=== PATIENT | male | born 1955 | race Caucasian/White ===

== ENCOUNTER 2016-10-16 07:24 | Inpatient (IN) | payer OTHER ==
[~2016-10-16] VITALS: Ht 162.6 cm; Wt 104.5 kg
--- NOTE | 2016-10-16 08:25 | DIAGNOSTIC IMAGING REPORT ---
PROCEDURE: XR CHEST 2 VIEW INDICATION: COUGH TECHNIQUE: PA and lateral view. COMPARISON: None. FINDINGS: Mild right basilar parenchymal changes suggestive of developing pneumonia. Cardiovascular structures are normal. Bony thorax is unremarkable. IMPRESSION: 1. Mild right basilar parenchymal changes suggestive of developing pneumonia
--- NOTE | 2016-10-16 11:54 | ED NURSING NOTES ---
Clinical Report - Nurses [facility] [address] [place] [address] 10/16/2016 7:25 Patient: NORMA ASHLEY TRIAGE Triage time 07:30. Acuity: LEVEL 2. Chief Complaint: SHORTNESS OF BREATH and DIFFICULTY BREATHING and (Dx with pneumonia and COPD in August. C/o not getting better. States he took the 2 meds that were prescribed.). 07:39 10/16/16. SEPSIS SCREEN: Sepsis Screen. Negative (no infection suspected/documented). YFN COMA SCORE: [place] Coma Scale: 15- eyes open spontaneously (4); best verbal response- oriented x 4 (5); best motor response- obeys commands (6). --07:39 Keith Myles R.N. 07:31 10/16/16. BP: 147/73. HR: 89. RR: 20. O2 saturation: 91% on nasal cannula at 2 liters/minute. Temp: 98 F (oral). Pain level now: 5/10. Additional comments: (bilat hip pain). --07:39 Keith Myles R.N. late entry -07:38. --08:07 Keith Myles R.N. Weight: 104.3 kg measured. Height/Length: 64 inches Per Patient. BMI: 39.5. --07:38 Keith Myles R.N. Medications Depakote Oral. Doxepin HCl Oral 300mg, at bedtime. Lisinopril Oral. SEROquel Oral. Xanax Oral 0.5 mg, as needed. --07:33 Keith Myles R.N. Cholesterol med ??. --07:33 Keith Myles R.N. HTN med ??. --07:34 Keith Myles R.N. Allergies BuSpar. --07:32 Keith Myles R.N. History Arrived by EMS. Historian: patient. The patient has had a cough productive of sputum (for weeks). 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 SOCIAL HX: Heavy tobacco smoker (cigarette)- 1 pack per day. No alcohol use or drug use. ABUSE ASSESSMENT: No report of abuse. --07:39 Keith Myles R.N. ( Pt also c/o being very weak.). --08:07 Keith Myles R.N. PROBLEMS: COPD. Abrasion(s). Sprain. Depression. Hypertension. Back Pain. Puncture Wound. Tetanus Status. Immunizations. Anxiety Reaction. --07:33 Keith Myles R.N. ADDITIONAL SURGERIES: Left wrist: 40 years ago. --07:33 Keith Myles R.N. Interventions ID band on patient. To treatment room. --07:39 Keith Myles R.N. PHYSICAL ASSESSMENT 07:44 10/16/16. To room via stretcher. Patient gowned. GENERAL / NEURO / PSYCH: Alert. Oriented X 4. Appears anxious. HEENT: Mucous membranes are pink. RESPIRATORY: Mild respiratory distress. The patient can speak a few words at a time. Accessory muscle use. Chest nontender. Wheezing present. CVS: Normal sinus rhythm noted. Capillary refill less than 2 seconds. GI / : Abdomen soft and nontender. Bowel sounds within normal limits. SKIN: Skin is warm and dry. Normal skin turgor. --07:45 Keith Myles R.N. NURSING PROGRESS NOTES 07:45 10/16/16. Oxygen administered by nasal cannula at 2 liters. school bus monitor, pulse oximeter and NIBP monitor placed on patient; satellite project site monitor- Lead II and V5; monitor alarms on. Head of bed elevated. Reassurance given. Two patient identifiers checked. Call light placed in reach. Side rails up x 2. Bed placed in lowest position. Brakes of bed on. Patient ready for evaluation- chart flagged. --07:45 Keith Myles R.N. 07:53 10/16/2016 Site #1 started via IV in the left hand with an 20g angiocath, with aseptic technique and good blood return; one attempt. Blood drawn. Labeled in the presence of the patient and sent to the lab. Saline lock flushed with 10 mL saline. --08:01 Keith Myles R.N. 08:00 10/16/2016 Duoneb (Ipratropium-Albuterol) Neb TX Nebulizer 1 unit dose given. Given by the respiratory therapist. Allergies verified and confirmed 5 rights. --08:02 Keith Myles R.N. 08:00 10/16/2016 SOLU-MEDROL (MethylPREDNISolone Sodium Succ) IVP 125 mg given over 1 minute(s) via site #1. Allergies verified and confirmed 5 rights. IV patency established. IV site checked: no pain, redness, or swelling. IV flushed thoroughly pre- and post-medication administration. IVP given by RN. --08:03 Keith Myles R.N. 08:05 10/16/16. Oxygen increased to 4 liters by nasal cannula; (low spo2, increased RR). --08:05 Keith Myles R.N. Cardiac rhythm: normal sinus rhythm. --08:26 Keith Myles R.N. 08:25 10/16/16. BP: 146/75. HR: 83. RR: 20. O2 saturation: 94% on nasal cannula at 3 liters/minute. --08:26 Keith Myles R.N. 08:54 10/16/2016 Albuterol Neb TX Nebulizer 5 mg given. Given by the respiratory therapist. Allergies verified and confirmed 5 rights. --09:04 Keith Myles R.N. 09:00 10/16/16. BP: 140/69. HR: 92. RR: 23. O2 saturation: 94% on nasal cannula at 3 liters/minute. Temp: 98.2 F (oral). --10:34 Keith Myles R.N. 09:30 10/16/16. HR: 94. RR: 23. O2 saturation: 92%. Pain level now: 01/28. --10:35 Keith Myles R.N. 10:00 10/16/16. HR: 92. RR: 25. O2 saturation: 92% on nasal cannula at 2 liters/minute. --10:36 Keith Myles R.N. 10:20 10/16/16. BP: 124/63. HR: 92. RR: 24. O2 saturation: 91% on nasal cannula at 2 liters/minute. --10:36 Keith Myles R.N. EKG time: (11:45). EKG was performed by a nurse and shown to the ED physician. --11:51 Mady Love R.N. 11:51 10/16/16. O2 saturation: 92% on nasal cannula at 2 liters/minute. --11:51 Mady Love R.N. ( Pt given a phone to make a call). --11:58 Mady Love R.N. 08:30 10/16/2016 Duoneb Neb TX Response: no adverse reaction (minimal improvement). --12:05 Keith Myles R.N. 10:45 10/16/2016 Albuterol Neb TX Nebulizer 2.5 mg given. Given by the respiratory therapist. Allergies verified and confirmed 5 rights. --12:07 Keith Myles R.N. 12:01 10/16/16. ( Pt complained of back pain, ERMD notified, obtained order for Vicodin 2 tabs.). --12:01 Mady Love R.N. 12:02 10/16/2016 Hydrocodone-APAP (Hydrocodone-Acetaminophen) PO 5/325 mg Tablets 2 tab given. Confirmed 5 rights and sedative warning given. --12:09 Mady Love R.N. 12:48 10/16/2016 Started 750 mg of Levaquin (Levofloxacin) IVPB in bag #1 150 mL; at 100 mL/hr over 1.5 hour(s) via site #1 via IV pump. Allergies verified and confirmed 5 rights. IV patency established. IV site checked: no pain, redness, or swelling. IV flushed thoroughly pre- and post-medication administration. --12:48 Keith Myles R.N. 13:08 10/16/2016 Site #1 removed. Bandage applied (Pt accidentally pulled the IV out.). --13:08 Keith Myles R.N. 13:08 10/16/2016 Site #2 started via IV in the left wrist with an 20g angiocath, with aseptic technique and good blood return; one attempt. Saline lock flushed with 10 mL saline. --13:08 Keith Myles R.N. 13:48 10/16/2016 Site #2 removed. Catheter intact. Manual pressure and bandage applied (patient accidentally pulled out IV). --13:50 Alejandra Estrella R.N. 12:45 10/16/16. BP: 139/78. HR: 91. RR: 22. O2 saturation: 92% on nasal cannula at 2 liters/minute. --14:18 Keith Myles R.N. 13:15 10/16/16. BP: 128/68. HR: 86. RR: 17. O2 saturation: 92% on nasal cannula at 2 liters/minute. --14:18 Keith Myles R.N. 13:45 10/16/16. BP: 112/78. HR: 89. RR: 20. O2 saturation: 91% on nasal cannula at 2 liters/minute. Temp: 98.2 F (oral). Pain level now: 11/28. --14:21 Keith Myles R.N. DISPOSITION / DISCHARGE 14:10/16/16. Report was given to a nurse. Report included patient's care, treatment, medications, reviewed medication reconcilliation, and condition (including any recent changes or anticipated changes). All questions were answered. Report was acknowledged. (ERIKA Medina). --14:04 Keith Myles R.N. 14:10 10/16/2016 Site #3 started via IV in the right hand with an 20g angiocath, with aseptic technique and good blood return; one attempt. Saline lock flushed with 10 mL saline. --14:22 Keith Myles R.N. 14:20 10/16/2016 Site #[address] upon admission; patent, no pain and no signs of infection or infiltration. Good blood return present. Flushed with 10 mL saline; flushes easily. --14:23 Keith Myles R.N. 14:22 10/16/16. Departure time: 1420. Cardiac rhythm: normal sinus rhythm. Condition at departure: improved and stable. Disposition: observation in Acute Care (201). Patient's personal items include, with pt. --14:23 Keith Myles R.N. 13:45 10/16/16. BP: 112/78. HR: 89. RR: 20. O2 saturation: 91% on nasal cannula at 2 liters/minute. Temp: 98.2 F (oral). --14:23 Keith Myles R.N. Locked/Released at 10/17/2016 8:19 by Keith Myles R.N.
--- NOTE | 2016-10-16 11:54 | ED CLINICAL REPORT ---
Clinical Report - Physicians/Mid Levels [facility] [address] [place] [address] 10/16/2016 7:25 Patient: NORMA ASHLEY Time Seen: 0731. Arrived- By ambulance. Historian- patient. HISTORY OF PRESENT ILLNESS Chief Complaint: DYSPNEA. This started past month. It was gradual in onset and has been constant but is gone now or not gone now. The dyspnea is described as moderate. He has had dyspnea at rest. The patient has had a cough. He has had moderate amounts of thick, green sputum. There has been a change from baseline. (states he is having a fever). See nurses notes for current asthma threapy. Asthma triggers: unknown. (reports having diagnosis of COPD. states he was recently treated with abx about a month ago. says he has not gotten better). Similar symptoms previously: None. Recent medical care: The patient was seen recently in a clinic. REVIEW OF SYSTEMS No sore throat or throat, nasal discharge, sinus drainage or fever. No chills, muscle aches, palpitations, calf pain or nausea. No abdominal pain, diarrhea, black stools, difficulty with urination or excessive urination. No skin rash, enlarged lymph nodes, vomiting, diabetic symptoms or easy bruising. The patient has had weakness. All systems otherwise negative, except as recorded above. PAST HISTORY See nurses notes. Pneumonia. COPD 12-10 to 12-14 admitted Prov [place] for pneumonia due to sats in the 70's. Was 92% on RA at D/C. Hypertension. Hyperlipidemia. Bipolar disorder. (BPH). Medications: HTN med ??. Cholesterol med ??. Depakote Oral. Doxepin HCl Oral 300mg, at bedtime. Lisinopril Oral. SEROquel Oral. Xanax Oral 0.5 mg, as needed. Allergies: BuSpar. SOCIAL HISTORY Smoker- current status unknown. No alcohol use or drug use. No recent travel. Is a local resident. ADDITIONAL NOTES The nursing notes have been reviewed. PHYSICAL EXAM Vital Signs: 10/16/2016 07:31 BP: 147/73. HR: 89. RR: 20. O2 saturation: 91%. Temp: 98 F. Pain level now: 5/10. Blood pressure normal. Oxygen saturation low. Appearance: Alert. No acute distress. Eyes: Pupils equal, round and reactive to light. Eyes normal inspection. ENT: Ears normal. Nose normal. Pharynx normal. Uvula midline. Neck: Normal inspection. Neck supple. CVS: Normal heart rate and rhythm. Heart sounds normal. Pulses normal. Respiratory: Mild respiratory distress with accessory muscle use. Expiratory mild bilateral wheezes diffusely. No stridor or rales. Abdomen: Not soft. Tenderness present. Organomegaly present. Back: Normal inspection. Skin: Skin warm and dry. Normal skin color. No rash. Normal skin turgor. Extremities: Extremities exhibit normal ROM. No lower extremity edema. Neuro: Oriented X 3. No motor deficit. No sensory deficit. LABS, X-RAYS, AND EKG EKG: Normal EKG. Chest X-ray: Infiltrate present. Mediastinum normal. Great vessels normal. (right lower lobe infiltrate. No comparison to a month ago when he had a RLL infiltrate.). Views: PA and lateral. Technique: good. The X-rays were independently viewed by me and interpreted contemporaneously by me. Laboratory Tests: UA-Culture if indicated: (ISABELLA: 10/16/2016 09:55) ( MsgRcvd 10/16/2016 10:25) Final results Test Result Flag Units (Reference) URINE COLOR YELLOW URINE APPEARANCE CLEAR URINE GLUCOSE NEGATIVE (NEGATIVE) URINE BILIRUBIN NEGATIVE (NEGATIVE) URINE KETONE 1+ (NEGATIVE) URINE SPECIFIC GRAVITY 1.020 (1.010-1.030) URINE PH 6.5 (5.0-8.0) URINE PROTEIN TRACE (NEGATIVE) URINE UROBILINOGEN 1.0 EU/dL (0.2-1.0) URINE NITRITE NEGATIVE (NEGATIVE) URINE BLOOD NEGATIVE (NEGATIVE) URINE LEUK ESTERASE NEGATIVE (NEGATIVE) URINE RBC RARE rbc/hpf (0-1) URINE WBC 1-3 wbc/hpf (0-1) URINE EPITHELIAL CELLS NONE SEEN EPI/hpf (0-5) URINE BACTERIA NONE SEEN (NONE SEEN) URINE COMMENT CULT NOT INDICATED 3+ MUCOUSURINE CULTURES ARE SET-UP BASED ON THE FOLLOWING CRITERIA:POSITIVE NITRITEPOSITIVE LEUKOCYTE ESTERASEGREATER THAN 10 WHITE BLOOD CELLSMODERATE (2+) OR GREATER BACTERIA CBC w Diff: (ISABELLA: 10/16/2016 07:53) ( [facility] 10/16/2016 08:13) Final results Test Result Flag Units (Reference) WHITE BLOOD COUNT 9.7 K/uL (4.5-11.5) RED BLOOD COUNT 4.76 M/uL (4.50-5.90) HEMOGLOBIN 13.5 gm/dL (13.5-17.5) HEMATOCRIT 41.3 % (41.0-53.0) MEAN CELL VOLUME 87 fL (80-100) MEAN CORPUSCULAR HGB 28 pg (26-34) MEAN CORPUSCULAR HGB CONC 33 g/dL (31-37) RED CELL DISTRIBUTION WIDTH 15.3 H % (11.6-14.8) PLATELET COUNT 249 K/uL (150-400) NEUTROPHIL % 74.7 % (50-75) LYMPH % 16.1 L % (25-40) MONO % 8.7 % (3-14) EOSINOPHIL % 0.1 % (0-4) BASOPHIL % 0.4 % (0-2) BNP: (ISABELLA: 10/16/2016 07:53) ( [facility] 10/16/2016 11:09) Final results Test Result Flag Units (Reference) B-TYPE NATRIURETIC PEPTIDE 42.4 pg/ml (5-100) Troponin-I: (ISABELLA: 10/16/2016 07:53) ( [facility] 10/16/2016 11:06) Final results Test Result Flag Units (Reference) TROPONIN I <0.05 ng/mL (0.00-1.5) TROPONIN REFERENCE RANGE:<0.1 NEGATIVE0.1-1.5 INDETERMINANT>1.5 POSITIVE Lactate, Serum: (ISABELLA: 10/16/2016 07:53) ( [facility] 10/16/2016 08:26) Final results Test Result Flag Units (Reference) LACTIC ACID 0.9 mmol/L (0.4-2.0) [id number]: (ISABELLA: 10/16/2016 07:53) ( MsgRcvd 10/16/2016 08:57) Final results Test Result Flag Units (Reference) PROCALCITONIN <0.5 ng/mL (0-0.5) PCT Concentration: Interpretation : Risk/option for action PCT <=0.5 ng/mL : Systemic : Low risk forinfection(sepsis): progression to severeis not likely. : systemic infection.Local bacterial : CAUTION-PCT levelsinfection is : below 0.5 ng/mL do notpossible. : exclude an infection,because localizedinfections (withoutsystemic signs) may beassociated with suchlow levels. If PCT ismeasured very earlyafter a bacterialchallenge (usually <6hours), these valuesmay still be low. Inthis case PCT shouldbe re-assessed 6-24hours later. PCT >0.5 and : Systemic infection: Moderate risk for<= 2 ng/mL : (sepsis) is : progression to severepossible, but : systemic infection.other conditions : The patient should beare known to : closely monitoredelevate PCT. : both clinically andby re-assessing PCTwithin 6-24 hours. PCT > 2 ng/mL : Systemic infection: High risk for(sepsis) is likely: progression to severeunless other : systemic infection.causes are known. : PCT >= 10 ng/mL : Important systemic: High likelihood ofinflammatory : severe sepsis orresponse, almost : septic shock.exclusively due to:severe bacterial :sepsis or septic :shock. : CMP: (ISABELLA: 10/16/2016 07:53) ( MsgRcvd 10/16/2016 08:21) Final results Test Result Flag Units (Reference) GLUCOSE 155 H mg/dL (70-110) BUN 11 mg/dL (7-18) CREATININE 0.8 mg/dL (0.6-1.3) Estimated GFR >60 mL/min Estimated GFR- >60 mL/min Note: Persistent reduction over 3 months in eGFR<60 mL/min/1.73 m2 defines CKD. Patients with eGFR values>=60 mL/min/1.73 m2 may also have CKD if evidence ofpersistent proteinuria. Additional information may be foundat www.[email or web address].org. SODIUM 139 mmol/L (136-145) POTASSIUM 3.7 mmol/L (3.5-5.1) CHLORIDE 102 mmol/L (98-107) CARBON DIOXIDE 28 mmol/L (21-32) CALCIUM 8.5 mg/dL (8.5-10.1) TOTAL PROTEIN 6.6 g/dL (6.4-8.2) ALBUMIN 3.1 L g/dL (3.3-5.0) BILIRUBIN, TOTAL 0.2 mg/dL (0.0-1.0) ALKALINE PHOSPHATASE 75 U/L (46-116) AST (SGOT) 11 L U/L (15-37) ALT (SGPT) 19 U/L (12-78) RSV Rapid Screen: (ISABELLA: 10/16/2016 07:53) ( MsgRcvd 10/16/2016 08:42) Final results SPECIMEN DESCRIPTION: ONCE SPECIMEN DESCRIPTION: MUCUS Test Result Flag Units (Reference) RSV RAPID TEST DATE: 10/16/16 NEGATIVE SCREEN: NEGATIVE If Rapid RSV test is Negative but RSV is still suspected, a confirmatory RSV DFA can be requested. RAPID INFLUENZA SCREEN DATE: 10/16/16 INFLUENZA A: NEGATIVE SCREEN FOR INFLUENZA A INFLUENZA B: NEGATIVE SCREEN FOR INFLUENZA B . PROGRESS AND PROCEDURES Course of Care: The patient is a pleasant 60-year-old male with history of COPD presenting for evaluation of shortness of breath and wheezing. Patient reports that he was recently admitted to the hospital. Patient is a poor historian and does not recall which antibiotics he was placed on. The patient reports that he was feeling slightly better at the time of discharge however has gotten worse. Patient reports history and symptoms that are concerning for pneumonia. Patient appears nontoxic on examination. Patient was hypoxic on room air with EMS. Patientwith O2 sat of 89%. Patient will be given a breathing treatment as well as evaluated with chest x-ray and laboratory studies. Patient is agreeable to the treatment and plan. Medical records have been requested. They're currently pending at this time. Patient was reevaluated after the first breathing treatment was given. Patient reports mild improvement in symptoms however patient is still wheezing on examination. hour continuous breathing treatment has been ordered. at time of shift change, patient will be transferred over to the oncoming doctor. IV heplock Blood culture. Levaquin 750 mg IV. Albuterol hand-held neb 2. DuoNeb handheld neb. Solu-Medrol 125 mg IV. Vicodin 2 by mouth. Patient some better but still with wheezing and will need admission for pneumonia and bronchospasm. Discussed case with on-call health care provider, (Johnathon). Reviewed test results. Agreed upon treatment plan. Health care provider will see patient in ED. Patient/family counseled. Old ED and inpatient records reviewed. (prov aug 2016). Disposition orders written. Disposition: Admitted to Acute Care. (Electronically signed by Huey Whitney MD 10/18/2016 8:13)
--- NOTE | 2016-10-16 11:55 | ED ORDER SUMMARY ---
..... Patient: NORMA ASHLEY OrderSheet [facility] VisitID: [id number] [place] [address] 60y, M Registration Date/Time: 10/16/2016 ORDER SHEET Weight: 104.3 kg (measured) Allergies: BuSpar GENERAL ORDERS: Chest 2V Urgent (07:10/16/2016 Justin Garcia) (7:42 JSimbeck R.N.) Bead Filler (Continuous) (Respiratory Distress) (07:10/16/2016 Justin Garcia) (7:39 JSimbeck R.N.) Rapid Influenza Screen (Nasal Pharyngeal) (mucus) Urgent (:10/16/2016 Justin Garcia) (Ack 7:43 LMuller) (8:01 JSimbeck R.N.) RSV Rapid Screen (Nasal Pharyngeal) (once) Urgent (07:10/16/2016 Justin Garcia) (Ack 7:43 LMuller) (8:01 JSimbeck R.N.) CBC w Diff Urgent (07:10/16/2016 Justin Garcia) (7:39 JSimbeck R.N.) CMP Urgent (07:10/16/2016 Justin Garcia) (Ack 7:43 LMuller) (8:01 JSimbeck R.N.) UA-Culture if indicated Urgent (07:10/16/2016 Justin Garcia) (Ack 7:43 LMuller) (10:00 JSimbeck R.N.) Lactate, Serum Urgent (07:10/16/2016 Justin Garcia) (Ack 7:43 LMuller) (8:01 JSimbeck R.N.) PCT (Procalcitonin) Urgent (:10/16/2016 Justin Garcia) (Ack 7:43 LMuller) (8:01 JSimbeck R.N.) Pulse oximeter (07:10/16/2016 Justin Garcia) (7:39 JSimbeck R.N.) - (ok to have cup of coffee) (09:43 10/16/2016 Dominik VIRGEN) (10:00 JSimbeck R.N.) Troponin-I Urgent (10:33 10/16/2016 Dominik VIRGEN) (Ack 10:35 TBergley) (11:47 TBergley) BNP Urgent (10:33 10/16/2016 Dominik VIRGEN) (Ack 10:35 TBergley) (11:47 TBergley) EKG - ER Stat (10:37 10/16/2016 Dominik VIRGEN) (Ack 10:42 TBergley) (11:47 TBergley) Blood Culture (No) (N/A) Urgent (12:18 10/16/2016 Dominik VIRGEN) (Ack 12:24 TBergley) (12:40 TBergley) MEDICATION ORDERS: DuoNeb Neb Tx 1 unit dose (NOW) (07:34 10/16/2016 Justin Garcia) (8:02 Sae R.N.) Albuterol Neb Tx 7.5 mg (over 1 hour. now. ) (08:32 10/16/2016 Justin Garcia) (9:04 Sae R.N.) Albuterol Neb Tx 2.5 mg (NOW, HHN) (Sched once for X1); Routine (pre and post peak flows.) (Sched once for X1) (10:34 10/16/2016 Dominik VIRGEN) (12:07 Sae R.N.) Hydrocodone-APAP PO 10/650 mg (NOW) (11:55 10/16/2016 Dominik VIRGEN) (12:09 LSullivan R.N.) IV FLUIDS: IV Saline Lock (07:34 10/16/2016 Justin Garcia) (8:01 Sae R.N.) Solu-MEDROL IV 125 mg (NOW) (07:35 10/16/2016 Justin Garcia) (8:03 Sae R.N.) Levaquin IV 750 mg/150 mL (NOW) (12:19 10/16/2016 Dominik VIRGEN) (12:48 Sae R.N.) ORDER SHEET NOTES: [Electronically signed by Keith Myles R.N. (08:10/17/2016)] [Electronically signed by Huey Whitney MD (08:13 10/18/2016)] [Electronically locked/signed by Keith Myles R.N. (08:19 10/17/2016)]
--- NOTE | 2016-10-16 11:55 | ED ORDER SUMMARY ---
..... Patient: NORMA ASHLEY OrderSheet [facility] VisitID: [id number] [place] [address] 60y, M Registration Date/Time: 10/16/2016 ORDER SHEET Weight: 104.3 kg (measured) Allergies: BuSpar GENERAL ORDERS: Chest 2V Urgent (07:10/16/2016 Justin Garcia) (7:42 JSimbeck R.N.) Tiger Machine Operator (Continuous) (Respiratory Distress) (07:10/16/2016 Justin Garcia) (7:39 JSimbeck R.N.) Rapid Influenza Screen (Nasal Pharyngeal) (mucus) Urgent (:10/16/2016 Justin Garcia) (Ack 7:43 LMuller) (8:01 JSimbeck R.N.) RSV Rapid Screen (Nasal Pharyngeal) (once) Urgent (07:10/16/2016 Justin Garcia) (Ack 7:43 LMuller) (8:01 JSimbeck R.N.) CBC w Diff Urgent (07:10/16/2016 Justin Garcia) (7:39 JSimbeck R.N.) CMP Urgent (07:10/16/2016 Justin Garcia) (Ack 7:43 LMuller) (8:01 JSimbeck R.N.) UA-Culture if indicated Urgent (07:10/16/2016 Justin Garcia) (Ack 7:43 LMuller) (10:00 JSimbeck R.N.) Lactate, Serum Urgent (07:10/16/2016 Justin Garcia) (Ack 7:43 LMuller) (8:01 JSimbeck R.N.) PCT (Procalcitonin) Urgent (:10/16/2016 Justin Garcia) (Ack 7:43 LMuller) (8:01 JSimbeck R.N.) Pulse oximeter (07:10/16/2016 Justin Garcia) (7:39 JSimbeck R.N.) - (ok to have cup of coffee) (09:43 10/16/2016 Dominik VIRGEN) (10:00 JSimbeck R.N.) Troponin-I Urgent (10:33 10/16/2016 Dominik VIRGEN) (Ack 10:35 TBergley) (11:47 TBergley) BNP Urgent (10:33 10/16/2016 Dominik VIRGEN) (Ack 10:35 TBergley) (11:47 TBergley) EKG - ER Stat (10:37 10/16/2016 Dominik VIRGEN) (Ack 10:42 TBergley) (11:47 TBergley) Blood Culture (No) (N/A) Urgent (12:18 10/16/2016 Dominik VIRGEN) (Ack 12:24 TBergley) (12:40 TBergley) MEDICATION ORDERS: DuoNeb Neb Tx 1 unit dose (NOW) (07:34 10/16/2016 Jsutin Garcia) (8:02 Sae R.N.) Albuterol Neb Tx 7.5 mg (over 1 hour. now. ) (08:32 10/16/2016 Justin Garcia) (9:04 Sae R.N.) Albuterol Neb Tx 2.5 mg (NOW, HHN) (Sched once for X1); Routine (pre and post peak flows.) (Sched once for X1) (10:34 10/16/2016 Dominik VIRGEN) (12:07 Sae R.N.) Hydrocodone-APAP PO 10/650 mg (NOW) (11:55 10/16/2016 Dominik VIRGEN) (12:09 LSullivan R.N.) IV FLUIDS: IV Saline Lock (07:34 10/16/2016 Justin Garcia) (8:01 Sae R.N.) Solu-MEDROL IV 125 mg (NOW) (07:35 10/16/2016 Justin Garcia) (8:03 Sae R.N.) Levaquin IV 750 mg/150 mL (NOW) (12:19 10/16/2016 Dominik VIRGEN) (12:48 Sae R.N.) ORDER SHEET NOTES: [Electronically signed by Keith Myles R.N. (08:10/17/2016)] [Electronically signed by Huey Whitney MD (08:13 10/18/2016)] [Electronically locked/signed by Keith Myles R.N. (08:19 10/17/2016)]
[2016-10-16 14:36] VITALS: BP 126/78
--- NOTE | 2016-10-16 14:50 | NUR ---
PATIENT UP TO FLOOR AT 1430. PATIENT IS ALERT AND ORIENTED AND COOPERATIVE WITH CARES. GENERAL DIET, EATING SANDWICH. HAS ONLY BOTTOM PARTIAL DENTURES, MISSING TOP PARTIALS MORE TEETH HAVE FALLEN OUT AND THEY NO LONGER FIT. PINT POINT SIZE SCAB TO L GLUT, PATIENT STATES FROM SCRATCHING. KNEES BILAT. VERY DRY. VSS. LUNGS EW THROUGHOUT. WCTM
--- NOTE | 2016-10-16 15:01 | History & Physical Report ---
Information Source Information Source: Self Reliability: Good History Chief Complaint shortness of breath and cough History of Present Illness Patient is a 60 year old male with a pmh of bipolar disorder, copd, depression, anxiety, and hypertension. Patient has been having cough and shortness of breath for approximately one week. Patient reports that his symptoms have not been improving and that he has been having a difficult time performing any activity due to the shortness of breath. It eventually came to the point where his medications that he was taking was having little to no effect on him and therefore he decided that he needed to come to the hospital. Patient has been stable while in the Ed, however he is unable to saturate over 90% without accessory oxygen. Patient History 1. Pneumonia 2. COPD exacerbation 3. Hypoxia 4. Bipolar 1 disorder 5. Anxiety 6. Tobacco abuse Social History patient is an active smoker, smokes .5-1 pack of cigarettes a day. patient does not drink or use illicit drugs. Pt currently lives in his own residence with his daughter and her boyfriend. Health Maintenance pt does not have a regular pmd, pt does not follow up regularly with a doctor Medications and Allergies Medications Current Medications Sig/Fei Start time Last Medication Dose Route Stop Time Status Admin Divalproex Sodium 500 MG BID 10/16 2099 AC 10/16 PO 2120 Doxepin HCl 150 MG QHS 10/16 PO 212 Methylprednisolone 80 MG BID 10/16 Sodium Succinate IV 2120 Quetiapine Fumarate 200 MG QHS 10/16 PO 2120 Albuterol/Ipratropium 3 ML RTQ6H 10/16 IN 0122 Acetaminophen/ See Dose Q6H PRN 10/16 1830 AC 10/17 Hydrocodone Bitart Insts (1) PO 0551 Oxycodone/ See Dose Q4H PRN 10/16 1815 CAN Acetaminophen Insts (2) PO Atorvastatin Calcium 20 MG QPM 10/16 1800 AC 10/16 PO 175 Citalopram 20 MG DAILY 10/16 1800 10/16 Hydrobromide PO 1755 Lisinopril 10 MG DAILY 10/16 1800 AC 10/16 PO 175 Quetiapine Fumarate 25 MG DAILY 10/16 1800 10/16 PO 175 Tamsulosin HCl 0.4 MG DAILY 10/16 PO 1756 Alprazolam 0.5 MG BID PRN 10/16 1715 AC 10/16 PO 2144 Tramadol HCl 25 MG Q8H PRN 10/16 1715 AC PO Nicotine 21 MG QAM 10/16 1530 10/16 TOP 1557 Sodium Chloride 1,000 ML ASDIRECTED 10/16 1500 10/17 IV 0106 Enoxaparin Sodium 40 MG QAM 10/16 1456 10/16 SC 1557 Dose Instructions: (1)Acetaminophen/Hydrocodone Bitart: 1 - 2 TABLETS (2)Oxycodone/Acetaminophen: 1 - 2 TABLETS Allergies Coded Allergies: Buspirone (From Buspar) (Severe, 10/16/16) Review of Systems Constitutional Fever, Weakness. Denies: Chills, Sweats, Malaise, Other. Eyes Denies: Pain, Vision Change, Conjunctival Inflammation, Eyelid Inflammation, Redness, Other. ENT Denies: Ear Pain, Ear Discharge, Nose Pain, Nasal Discharge, Nasal Congestion, Mouth Pain, Mouth Swelling, Throat Pain, Throat Swelling, Other. Respiratory Cough, SOB w/exertion, Wheezing. Denies: Dry, Hemoptysis, Pleuritic Pain, Sputum, Other. Cardiovascular Denies: Chest Pain, Palpitations, Orthopnea, PND, Edema, Light-headedness, Other. Gastrointestinal Denies: Nausea, Vomiting, Abdominal Pain, Diarrhea, Constipation, Melena, Hematochezia, Other. Genitourinary Denies: Dysuria, Frequency, Incontinence, Hematuria, Retention, Other. Musculoskeletal Denies: Neck Pain, Shoulder Pain, Arm Pain, Back Pain, Hand Pain, Leg Pain, Foot Pain, Other. Skin Denies: Rash, Lesions, Jaundice, Bruising, Other. Neurological Denies: Weakness, Numbness, Incoordination, Change in speech, Confusion, Seizures, Other. Physical Exam Vital Signs / I&Os Vital Signs Date Time Temp Pulse Resp B/P Pulse O2 O2 Flow FiO2 Ox Delivery Rate 10/17 0628 98.1 80 24 125/64 94 Nasal 3.0 Cannula 10/17 0213 98.1 80 22 129/70 92 Nasal Cannula 10/17 0122 2.0 10/163 98.1 80 22 137/70 95 Nasal 2.0 Cannula 10/16 2009 2.0 10/16 190 2.0 01/26 1810 98.1 84 20 124/61 94 Nasal 2.0 Cannula 10/16 1715 2.0 10/16 1521 Nasal 2.0 Cannula 10/16 1436 97.7 82 24 126/78 93 Nasal 2.0 Cannula 10/16 1045 2.0 10/16 0848 3.0 10/16 0803 3.0 I&O 10/16 0800 10/16 1600 10/17 0000 Intake Total 0 840 Output Total 0 725 Balance 0 115 General Appearance Alert, Oriented X3, No acute distress HEENT PERRLA, Moist mucous membranes Lungs bilateral ronchi, R>>L Neck No JVD, No masses Cardiovascular Normal S1 and S2, No murmurs, gallops, rubs Abdomen Soft, No tenderness Extremities No edema, Normal pulses, Strength = upper ext's, Strength = lower ext's Skin No Breakdown Neurological Normal gait, Normal speech, Reflexes 2+ and equal, Strength 5/5 x4 ext's, No lateralizing signs Psych/Mental Status Mood normal LAB Results Laboratory Tests 10/16 10/16 10/16 10/16 10/16 0753 0753 0753 0753 0753 Chemistry Plasma Sodium (136 - 145 mmol/L) 139 Plasma Potassium (3.5 - 5.1 mmol/L) 3.7 Plasma Chloride (98 - 107 mmol/L) 102 CO2 (Enzymatic) (21 - 32 mmol/L) 28 BUN (7 - 18 mg/dL) 11 Creatinine (0.6 - 1.3 mg/dL) 0.8 Est GFR ( Amer) (mL/min) >60 Est GFR (Non-Af Amer) (mL/min) >60 Glucose (70 - 110 mg/dL) 155 Lactic Acid (0.4 - 2.0 mmol/L) 0.9 Plasma Calcium (8.5 - 10.1 mg/dL) 8.5 Total Bilirubin (0.0 - 1.0 mg/dL) 0.2 AST (15 - 37 U/L) 11 ALT (12 - 78 U/L) 19 Alkaline Phosphatase (46 - 116 U/L) 75 Troponin (0.00 - 1.5 ng/mL) <0.05 B-Natriuretic Peptide (5 - 100 pg/ml) 42.4 Total Protein (6.4 - 8.2 g/dL) 6.6 Albumin (3.3 - 5.0 g/dL) 3.1 Procalcitonin (0 - 0.5 ng/mL) <0.5 Hematology WBC (4.5 - 11.5 K/uL) 9.7 RBC (4.50 - 5.90 M/uL) 4.76 Hgb (13.5 - 17.5 gm/dL) 13.5 Hct (41.0 - 53.0 %) 41.3 MCV (80 - 100 fL) 87 MCH (26 - 34 pg) 28 RDW (11.6 - 14.8 %) 15.3 Neut % (Auto) (50 - 75 %) 74.7 Lymph % (Auto) (25 - 40 %) 16.1 [place] % (Auto) (3 - 14 %) 8.7 Eos % (Auto) (0 - 4 %) 0.1 Baso % (Auto) (0 - 2 %) 0.4 Plt Count, EDTA (150 - 400 K/uL) 249 PUBS MCHC (31 - 37 g/dL) 10/16 0955 0445 Chemistry Plasma Magnesium (1.8 - 2.4 mg/dL) 2.1 Hematology WBC (4.5 - 11.5 K/uL) 11.5 RBC (4.50 - 5.90 M/uL) 4.65 Hgb (13.5 - 17.5 gm/dL) 13.4 Hct (41.0 - 53.0 %) 40.5 MCV (80 - 100 fL) 87 MCH (26 - 34 pg) 29 RDW (11.6 - 14.8 %) 15.5 Neut % (Auto) (50 - 75 %) 86.2 Lymph % (Auto) (25 - 40 %) 9.8 [place] % (Auto) (3 - 14 %) 3.9 Eos % (Auto) (0 - 4 %) 0 Baso % (Auto) (0 - 2 %) 0.1 Plt Count, EDTA (150 - 400 K/uL) 268 PUBS MCHC (31 - 37 g/dL) 33 Urines Urine Color YELLOW Urine Appearance CLEAR Urine pH (5.0 - 8.0) 6.5 Ur Specific [place] (1.010 - 1.030) 1.020 Urine Protein (NEGATIVE) TRACE Urine Ketones (NEGATIVE) 1+ Urine Blood (NEGATIVE) NEGATIVE Urine Nitrite (NEGATIVE) NEGATIVE Urine Bilirubin (NEGATIVE) NEGATIVE Urine Urobilinogen (0.2 - 1.0 EU/dL) 1.0 Ur Leukocyte Esterase (NEGATIVE) NEGATIVE Urine RBC (0 - 1 rbc/hpf) RARE Urine WBC (0 - 1 wbc/hpf) 1-3 Ur Epithelial Cells (0 - 5 EPI/hpf) NONE SEEN Urine Bacteria (NONE SEEN) NONE SEEN Urine Glucose (NEGATIVE) NEGATIVE Urine Comment CULT NOT INDICATED Microbiology Date/Time Procedure - Status Source Growth 10/16 1240 Blood Culture - RECD BLOOD 10/16 0753 Respiratory Syncytial Virus Ag Scrn - COMP NASALPHAR 10/16 0753 Influenza Screen - COMP NASALPHAR Assessment and Plan Problem List 1. COPD exacerbation Plan will treat with duonebs q6 hours will provide solumedrol 80 mg bid will obtain labs for this am 2. Anxiety Plan - pt has baseline anxiety pt will resume home medication will monitor for anxiety induced sob 3. Hypoxia Plan pt was seen to be saturating in the high 80s while in the Ed improved with duonebs will place on 2 l nc and monitor 4. Pneumonia Plan pt has evidence of RLLL infiltrate will provide ceftriaxone and azithromycin 5. Tobacco abuse Plan pt admits to smoking will counseling services director on smoking cessation
[2016-10-16] MEDS ORDERED: ALBUTEROL HFA60 DOSE IN (15:37)
[2016-10-16] MEDS ORDERED: FLOMAX0.4 MG PO (15:39)
[2016-10-16] MEDS ORDERED: DEPAKOTE ER500 MG PO (15:45)
[2016-10-16] MEDS ORDERED: TRAMADOL HCL50 MG PO (15:46)
[2016-10-16] MEDS ORDERED: CITALOPRAM HYDR20 MG PO (15:46)
[2016-10-16] MEDS ORDERED: SEROQUEL100 MG PO (15:47)
[2016-10-16] MEDS ORDERED: SEROQUEL25 MG PO (15:47)
[2016-10-16] MEDS ORDERED: ALPRAZOLAM0.5 MG PO (15:48)
[2016-10-16] MEDS ORDERED: LISINOPRIL10 MG PO (15:48)
[2016-10-16] MEDS ORDERED: ZOCOR20 MG PO (15:49)
[2016-10-16] MEDS ORDERED: MINIPRESS2 MG PO (15:50)
[2016-10-16] MEDS ORDERED: DOXEPIN HCL150 MG PO (15:50)
[2016-10-16 18:10] VITALS: BP 124/61
--- NOTE | 2016-10-16 21:00 | NUR ---
PATIENT STILL HAS OCCASIONAL DRY COUGH AND REMAINS ON REGULAR IV STEROID WELL RT TREATMENTS. HE REQUESTED FOR A SNACK BEFORE SETTLING IN FOR THE NIGHT.
[2016-10-16 22:43] VITALS: BP 137/70
[2016-10-17 02:13] VITALS: BP 129/70
[2016-10-17 06:28] VITALS: BP 125/64
--- NOTE | 2016-10-17 08:38 | NUR ---
RECEIVED PT UP IN THE CHAIR, AWAKE, ALERT, ORIENTED, COHERENT, COOPERATIVE. V/S TAKEN AND RECORDED. ASSESSMENT DONE. (+) SOB WITH EXERTION. COMPLAINT OF BACK PAIN, PAIN MEDICATION GIVEN EARLIER. PT TOLERATED HIS MEALS WELL. DUE MEDS GIVEN. NEEDS ATTENDED.
--- NOTE | 2016-10-17 09:30 | NUR ---
PT AMBULATE TO THE BEAR WITH MS ROBERTS, WITH 02 AT 2L. (+) SOB NOTED, 02 SAT WENT DOWN TO 86-88% EVEN WITH REST PERIODS. THEN ASSISTED PT BACK TO BED. PT WAS ABLE TO FINISH 1 LOOP. " I FEEL FINE" PT STATES.
[2016-10-17 10:33] VITALS: BP 139/78
[2016-10-17 14:16] VITALS: BP 158/82
--- NOTE | 2016-10-17 15:13 | NUR ---
NUTRITION ASSESSMENT: S: Pt admitted with diagnosis of COPD exacerbation, SOB, hx/o bipolar, deprssion and HTN (see H&P). Pt po intake ~50-100%. No problems reported with chewing or swallowing. O: diet rx: low sodium regular thin NKFA Wts: 80 kg Ht: 66" IBW: 65-74 kg BMI: 28.6 IBW: 108% Est Kcals: ~6416-8094 kcals per day Est Fluids: ~2.1 L per day Meds Incl: lipitor, celexa, lisinopril, prednisone, nicotine, seroquel, see eMar for complete list/details. Labs Incl: (10/16) glucose 155, BUN 11, creat 0.8, Na+ 139, K+ 3.9, Ca+ 8.5, albumin 3.1, HCT 40.5, HGB 13.4, MCV 87, MCH 29 Skin: Lacho Score 20 scrathces, dry/cracked feet knees, waffle overlay in place A: Pts appetite appears intact, no issues with eating per report. Rev'd meds and labs. Rec continue low sodium diet 2/2 hx/o HTN. May see elevated blood sugars 2/2 prednisone/corticosteroid use, continue to monitor. RD to follow up and monitor nutrition indices prn/protocol. P: 1. Continue same
--- NOTE | 2016-10-17 16:00 | Progress Note ---
Subjective General Patient is doing well without any complaints. Patient breathing has improved however the patient still has continual shortness of breath. Patient is otherwise stable. Constitutional Malaise. Denies: Fever, Chills, Sweats, Weakness, Other. Eyes Denies: Pain, Vision Change, Conjunctival Inflammation, Eyelid Inflammation, Redness, Other. ENT Denies: Ear Pain, Ear Discharge, Nose Pain, Nasal Discharge, Nasal Congestion, Mouth Pain, Mouth Swelling, Throat Pain, Throat Swelling, Other. Respiratory Cough, SOB w/exertion, Wheezing. Denies: Dry, Hemoptysis, Pleuritic Pain, Sputum. Cardiovascular Denies: Chest Pain, Palpitations, Orthopnea, PND, Edema, Light-headedness, Other. Gastrointestinal Denies: Nausea, Vomiting, Abdominal Pain, Diarrhea, Constipation, Melena, Hematochezia, Other. Genitourinary Denies: Dysuria, Frequency, Incontinence, Hematuria, Retention, Other. Musculoskeletal Denies: Neck Pain, Shoulder Pain, Arm Pain, Back Pain, Hand Pain, Leg Pain, Foot Pain, Other. Skin Denies: Rash, Lesions, Jaundice, Bruising, Other. Neurological Denies: Weakness, Numbness, Incoordination, Change in speech, Confusion, Seizures, Other. Physical Exam Vital Signs / I&Os Vital Signs Date Time Temp Pulse Resp B/P Pulse O2 O2 Flow FiO2 Ox Delivery Rate 10/17 1516 2.0 10/17 1416 98.1 79 20 158/82 94 Nasal 2.0 Cannula 10/17 1033 98.2 83 20 139/78 92 Nasal 2.0 Cannula 10/17 0930 14 86 Nasal 2.0 Cannula 10/17 0843 Nasal 2.0 Cannula 10/17 0820 2.0 10/17 0628 98.1 80 24 125/64 94 Nasal 3.0 Cannula 10/17 0213 98.1 80 22 129/70 92 Nasal Cannula 10/17 0122 2.0 10/16 2243 98.1 80 22 137/70 95 Nasal 2.0 Cannula 10/16 2010 2.0 10/16 1902 2.0 10/16 1810 98.1 84 20 124/61 94 Nasal 2.0 Cannula 10/16 1715 2.0 I&O 10/16 0800 10/16 1600 10/17 0000 Intake Total 0 840 Output Total 0 725 Balance 0 115 General Appearance Alert, Oriented X3, No acute distress HEENT Atraumatic, PERRLA, Moist mucous membranes Lungs Clear to auscultation, Normal air movement Neck Supple, No masses, No thyromegaly Cardiovascular Regular rate and rhythm, Normal S1 and S2, No murmurs, gallops, rubs Abdomen Normal bowel sounds, No tenderness, No guarding, No masses Extremities No clubbing, No edema, Normal pulses, No tenderness Skin No Breakdown, No Significant Lesions Neurological Normal gait, Normal speech, Normal tone, Reflexes 2+ and equal Psych/Mental Status Mood normal, Confused LAB Results Laboratory Tests 10/17 0445 Chemistry Plasma Magnesium (1.8 - 2.4 mg/dL) 2.1 Hematology WBC (4.5 - 11.5 K/uL) 11.5 RBC (4.50 - 5.90 M/uL) 4.65 Hgb (13.5 - 17.5 gm/dL) 13.4 Hct (41.0 - 53.0 %) 40.5 MCV (80 - 100 fL) 87 MCH (26 - 34 pg) 29 RDW (11.6 - 14.8 %) 15.5 Neut % (Auto) (50 - 75 %) 86.2 Lymph % (Auto) (25 - 40 %) 9.8 [place] % (Auto) (3 - 14 %) 3.9 Eos % (Auto) (0 - 4 %) 0 Baso % (Auto) (0 - 2 %) 0.1 Plt Count, EDTA (150 - 400 K/uL) 268 PUBS MCHC (31 - 37 g/dL) 33 Assessment and Plan Problem List 1. Pneumonia Plan - c/w levaquin - monitor oxygen saturation - c/w duonebs as scheduled 2. COPD exacerbation Plan - pt has persistent poor air exchange - pt has been having very reactive airway secondary to inflammation - will continue with steroid regimen 3. Anxiety Plan - c/w home medications 4. Bipolar 1 disorder Plan - c/w home medications
--- NOTE | 2016-10-17 17:21 | NUR ---
OOB AD MELODIE IN ROOM. ON 02 2L PER NC WITH SATURATION 94% NO S/S OF RESPIRATORY DISTRESS. LS DECREASED THROUGHOUT. GAVE 2 VICODIN FOR CHRONIC BACK PAIN RATED 6/10.
[2016-10-17 17:42] VITALS: BP 163/79
[2016-10-17 22:33] VITALS: BP 128/67
--- NOTE | 2016-10-17 23:31 | NUR ---
Noted dry feet with large amount of skins. Provided foot care and applied moisturizer. Pt stated L foot has trace edema, but otherwise no redness or pain. Had to remind him several time that he still needs to be on O2 NC. Noted SOB with small exersions. Will cont to monitor.
[2016-10-18] VITALS (7 sets, daily range): BP systolic 107–164; BP diastolic 68–85
--- NOTE | 2016-10-18 06:42 | Progress Note ---
Subjective General Patient with a brief episode of unable to move for a few seconds after a sneeze but then resolved and back to normal. Will order a ct brain, cta brain and neck r/o aneurysm
--- NOTE | 2016-10-18 07:33 | DIAGNOSTIC IMAGING REPORT ---
PROCEDURE: CT HEAD WITHOUT CONTRAST INDICATION: SUDDEN TEMPORARY PARALYSIS. UNEQUAL PUPILS TECHNIQUE: Noncontrast axial images with sagittal and coronal reformations. COMPARISON: None. FINDINGS: Mild cortical atrophy and minor white matter chronic ischemic changes. Normal ventricular system. No evidence of acute intracranial process. Visualized mastoids and sinuses are clear. IMPRESSION: 1. Mild cortical atrophy and minor white matter chronic ischemic changes 2. Findings discussed with Dr. Serrato and 07:33 a.m., [place] Standard Time
--- NOTE | 2016-10-18 07:46 | NUR ---
Upon coming out of another pt's room, heard pt quietly screaming "help." Pt had his NC off, laying on his bed semi-fowlers, and stated he could not move at all. Immediately placed him on 6L O2 and pt stated the symptoms has resolved. He stated that he was blowing his nose and it happened right afterwards, and hence he was not off the O2 for too long. Stated R side being worse than L side. VSS and neuro check was all negative except his pupils. R pupil was less reactive to light, at 3mm, while L reactive at 2mm. Called and obtained order for MRI or CT scan. MRI was unavailable on (confirmed with imaging), and proceeded with CT scans as ordered. Pt left for CT around 0630 and back around 0700. Still pending on results. Pt anxious but asymtomatic now.
--- NOTE | 2016-10-18 07:50 | DIAGNOSTIC IMAGING REPORT ---
PROCEDURE: CTA HEAD AND NECK INDICATION: SUDDEN TEMP PARALYSIS, initial encounter TECHNIQUE: 116 ml of Isovue 370 injected intravenously and axial images were obtained from the vertex through the upper mediastinum with 3D sagittal and coronal MIP reconstructions. COMPARISON: None. FINDINGS: Mild bilateral maxillary and sphenoid sinus disease. Nonspecific small cervical and supraclavicular lymph nodes bilaterally. AORTIC ARCH: Normal. RIGHT CAROTID SYSTEM: Normal common carotid artery. Minor calcific atherosclerosis of the bifurcation. LEFT CAROTID SYSTEM: Normal common carotid artery. Minor bifurcation plaque formation. VERTEBROBASILAR SYSTEM: Normal without aneurysm or occlusion. INTRACRANIAL ANTERIOR CIRCULATION: Middle and anterior cerebral arteries are normal without aneurysm or occlusion. INTRACRANIAL POSTERIOR CIRCULATION: Intracranial vertebral, basilar and posterior cerebral arteries are normal without aneurysm or occlusion IMPRESSION: 1. Minor plaque formation of the carotid bifurcations without significant stenosis 2. Cervical and supraclavicular adenopathy, nonspecific 3. Results discussed with Dr. Alcantara. The All CT scans at this facility use dose modulation, iterative reconstruction, and/or weight-based dosing when appropriate to reduce radiation dose to as low as reasonably achievable.
--- NOTE | 2016-10-18 08:13 | ED MAR SUMMARY ---
..... Medication Administration Record [facility] [address] [place] [address] Patient: NORMA ASHLEY Visit ID: [id number] 60y, M Weight: 104.3 kg Height/Length: 64 in BMI: 39.5 ALLERGIES: BuSpar Given 08:00 10/16/2016 Keith Myles R.N. Medication Administered: DUONEB [NEB TX] (IPRATROPIUM-ALBUTEROL), Dose: 1 unit dose Nebulizer Neb TX. Medication Ordered: DuoNeb Neb Tx 1 unit dose (NOW). Given 08:00 10/16/2016 Keith Myles R.N. Medication Administered: SOLU-MEDROL [IVP] (METHYLPREDNISOLONE SODIUM SUCC), Dose: 125 mg IVP over 1 minute(s), Site: #1 left hand. Medication Ordered: Solu-MEDROL IV 125 mg (NOW). Given 08:54 10/16/2016 Keith Myles R.N. Medication Administered: ALBUTEROL [NEB TX], Dose: 5 mg Nebulizer Neb TX. Medication Ordered: Albuterol Neb Tx 7.5 mg (over 1 hour. now. ). Given 10:45 10/16/2016 Keith Myles R.N. Medication Administered: ALBUTEROL [NEB TX], Dose: 2.5 mg Nebulizer Neb TX. Medication Ordered: Albuterol Neb Tx 2.5 mg (NOW, HHN) (Sched once for X1); Routine (pre and post peak flows.). Given 12:02 10/16/2016 Mady Love R.N. Medication Administered: HYDROCODONE-APAP [PO] (HYDROCODONE-ACETAMINOPHEN), Dose: 2 tab 5/325 mg Tablets PO. Medication Ordered: Hydrocodone-APAP PO 10/650 mg (NOW). Start 12:48 10/16/2016 Keith Myles R.N. Medication Administered: LEVAQUIN [IVPB] (LEVOFLOXACIN), Dose: 750 mg IVPB over 1.5 hour(s), Rate: 100 mL/hr, Dispensed: 150 mL bag, Site: #1 left hand. Medication Ordered: Levaquin IV 750 mg/150 mL (NOW).
--- NOTE | 2016-10-18 08:13 | ED MAR SUMMARY ---
..... Medication Administration Record [facility] [address] [place] [address] Patient: NORMA ASHLEY Visit ID: [id number] 60y, M Weight: 104.3 kg Height/Length: 64 in BMI: 39.5 ALLERGIES: BuSpar Given 08:00 10/16/2016 Keith Myles R.N. Medication Administered: DUONEB [NEB TX] (IPRATROPIUM-ALBUTEROL), Dose: 1 unit dose Nebulizer Neb TX. Medication Ordered: DuoNeb Neb Tx 1 unit dose (NOW). Given 08:00 10/16/2016 Keith Myles R.N. Medication Administered: SOLU-MEDROL [IVP] (METHYLPREDNISOLONE SODIUM SUCC), Dose: 125 mg IVP over 1 minute(s), Site: #1 left hand. Medication Ordered: Solu-MEDROL IV 125 mg (NOW). Given 08:54 10/16/2016 Keith Myles R.N. Medication Administered: ALBUTEROL [NEB TX], Dose: 5 mg Nebulizer Neb TX. Medication Ordered: Albuterol Neb Tx 7.5 mg (over 1 hour. now. ). Given 10:45 10/16/2016 Keith Myles R.N. Medication Administered: ALBUTEROL [NEB TX], Dose: 2.5 mg Nebulizer Neb TX. Medication Ordered: Albuterol Neb Tx 2.5 mg (NOW, HHN) (Sched once for X1); Routine (pre and post peak flows.). Given 12:02 10/16/2016 Mady Love R.N. Medication Administered: HYDROCODONE-APAP [PO] (HYDROCODONE-ACETAMINOPHEN), Dose: 2 tab 5/325 mg Tablets PO. Medication Ordered: Hydrocodone-APAP PO 10/650 mg (NOW). Start 12:48 10/16/2016 Keith Myles R.N. Medication Administered: LEVAQUIN [IVPB] (LEVOFLOXACIN), Dose: 750 mg IVPB over 1.5 hour(s), Rate: 100 mL/hr, Dispensed: 150 mL bag, Site: #1 left hand. Medication Ordered: Levaquin IV 750 mg/150 mL (NOW).
--- NOTE | 2016-10-18 08:14 | ED MED RECONCILIATION SUMMARY ---
Patient: NORMA ASHLEY Medication Reconciliation Report [facility] VisitID: [id number] [address] [place] [address] 60y, M Registration Date/Time: 10/16/2016 Weight: 104.3 kg Height/Length: 64 in. BMI: 39.5 ALLERGIES: BuSpar The patient's Home Medications are listed below: THE FOLLOWING MEDICATIONS NEED TO BE RECONCILED: Cholesterol med ?? Depakote Oral Doxepin HCl Oral 300mg, at bedtime HTN med ?? Lisinopril Oral SEROquel Oral Xanax Oral 0.5 mg The source(s) of the original Home Medication information: Not obtained. The following Medications were given to the patient in the Emergency Department: Duoneb [Neb Tx] Neb TX 1 unit dose, administered: 10/16/2016 8:00:00 AM SOLU-MEDROL [IVP] IVP 125 mg, administered: 10/16/2016 8:00:00 AM Albuterol [Neb Tx] Neb TX 5 mg, administered: 10/16/2016 8:54:00 AM Albuterol [Neb Tx] Neb TX 2.5 mg, administered: 10/16/2016 10:45:00 AM Hydrocodone-APAP [PO] PO 2 tab, administered: 10/16/2016 12:02:00 PM Levaquin [IVPB] IVPB bolus 0, then 750 mg 100 mL/hr, administered: 10/16/2016 12:48:00 PM The following Medications were prescribed to the patient: None.
--- NOTE | 2016-10-18 08:14 | ED MED RECONCILIATION SUMMARY ---
Patient: NORMA ASHLEY Medication Reconciliation Report [facility] VisitID: [id number] [address] [place] [address] 60y, M Registration Date/Time: 10/16/2016 Weight: 104.3 kg Height/Length: 64 in. BMI: 39.5 ALLERGIES: BuSpar The patient's Home Medications are listed below: THE FOLLOWING MEDICATIONS NEED TO BE RECONCILED: Cholesterol med ?? Depakote Oral Doxepin HCl Oral 300mg, at bedtime HTN med ?? Lisinopril Oral SEROquel Oral Xanax Oral 0.5 mg The source(s) of the original Home Medication information: Not obtained. The following Medications were given to the patient in the Emergency Department: Duoneb [Neb Tx] Neb TX 1 unit dose, administered: 10/16/2016 8:00:00 AM SOLU-MEDROL [IVP] IVP 125 mg, administered: 10/16/2016 8:00:00 AM Albuterol [Neb Tx] Neb TX 5 mg, administered: 10/16/2016 8:54:00 AM Albuterol [Neb Tx] Neb TX 2.5 mg, administered: 10/16/2016 10:45:00 AM Hydrocodone-APAP [PO] PO 2 tab, administered: 10/16/2016 12:02:00 PM Levaquin [IVPB] IVPB bolus 0, then 750 mg 100 mL/hr, administered: 10/16/2016 12:48:00 PM The following Medications were prescribed to the patient: None.
[2016-10-18] MEDS ORDERED: IPRATROPIUM BROMIDE/ IN (16:03)
[2016-10-18] MEDS ORDERED: LEVOFLOXACIN750 MG PO (16:05)
--- NOTE | 2016-10-18 16:06 | Provider's Discharge Care Plan ---
Problem, Goal, Plan Problem List 1. COPD exacerbation Goals: Improved health/wellness, Therapeutic intervention Instructions: Follow up as directed, Increase activity level, Take meds as directed 2. Tobacco abuse Goals: Improved health/wellness Instructions: Stop smoking
[2016-10-18] MEDS ORDERED: PREDNISONE10 MG PO (16:12)
[2016-10-18] MEDS ORDERED: NICODERM C21 MG/24 H TOP (16:12)
--- NOTE | 2016-10-18 17:45 | NUR ---
PT IS A&OX3, LS COARSE BUT CTA IN BASES, HR IS REG AND BT ACTIVE. NO C/O PAIN OR NAUSEA. AMBULATING AROUND THE UNIT, SATING AT 88-93% ON RA. PEDAL PULSES PRESENT AND STRONG. QUESTIONS AND CONCERNS RELATED TO DC AND FOLLOW UP. RX'S DISCUSSED W/ PT. PAPERWORK SIGNED AND ALL BELONGINGS GATHERED BY PT AND COURT BAILIFF OR SHERIFF. AMBULATED IND W/ COURT BAILIFF OR SHERIFF AT SIDE. IV DC'D INTACT. PT DC'D AT 1706.
--- NOTE | 2016-10-19 01:53 | DISCHARGE SUMMARY ---
ADMIT DATE: 10/16/2016 DISCHARGE DATE: 10/18/2016 ADMITTING DIAGNOSES: 1. Chronic obstructive pulmonary disease exacerbation 2. Anxiety 3. Hypoxia 4. Pneumonia 5. Tobacco use DISCHARGE DIAGNOSES: 1. Chronic obstructive pulmonary disease exacerbation 2. Anxiety 3. Hypoxia. 4. Pneumonia 5. Tobacco use BRIEF HISTORY: This is a 60-year-old male with a history of chronic obstructive pulmonary disease, bipolar disorder, depression, anxiety and hypertension, who presented with complaints of cough and shortness of breath for approximately 1 week. The patient had reported he is using his medications; however, that his symptoms had not been improving and he eventually presented to the emergency department. He was unable to maintain a saturation over 90% without oxygen. HOSPITAL COURSE: The patient was admitted to the hospital and kept on oxygen as an inpatient, given steroids, IV antibiotics, and breathing treatments. The patient gradually improved over the ensuing days, and later in the day on 10/18/2015, he actually was able to maintain his saturations above 90% off of oxygen, even with exertion. PHYSICAL EXAMINATION: VITAL SIGNS: At the time of discharge, blood pressure is 150/68, pulse is 70 and 97, respiratory rate is 20-22, O2 saturation is 90 to 91% on room air, T-max is 36.6 degrees Celsius. GENERAL: This is a well-appearing male sitting in bed in no apparent distress. HEENT: Head is atraumatic, normocephalic. Trachea is midline, there is no JVD. HEART: S1, S2, regular rate and rhythm. No S3, S4, murmurs, gallops, or rubs. LUNGS: Clear to auscultation bilaterally with good air movement. ABDOMEN: Soft, nontender, nondistended without hepatosplenomegaly or masses. Bowel sounds are active. There is no peripheral edema. DISCHARGE INSTRUCTIONS/MEDICATIONS: The patient will be discharged home with instructions to follow up with his primary care provider within 2 days. Diet: Consistent carb diet. Activity: Up ad cornelius. Medications DuoNeb 3 mL inhaled q.i.d. Levofloxacin 750 mg p.o. daily x6 days. Albuterol HFA 2 puffs inhaled q.4 hours p.r.n. Flomax 0.4 mg p.o. daily. Depakote 500 mg p.o. daily. Citalopram 20 mg p.o. daily. Tramadol 25 mg p.o. 8 hours p.r.n. pain. Seroquel 200 mg p.o. at bedtime and 25 mg p.o. q.a.m. Alprazolam 1 tab p.o. b.i.d. p.r.n. anxiety. Lisinopril 10 mg p.o. daily. Simvastatin 20 mg p.o. at bedtime. Minipress 2 mg p.o. at bedtime. Doxepin 150 mg p.o. at bedtime. Prednisone 40 mg p.o. daily x3 days, then 20 mg p.o. daily x3 days, then 10 mg p.o. daily x3 days. The patient was discharged with care continuum.
== END 2016-10-18 17:06 | disposition home or self-care (01) | DRG 190 ==
LOC: ED SRH 07:24 → TRANS SRH 12:23 → ACUTE2 SRH 14:26
PROVIDERS: ADMIT Emergency Medicine
DX: J44.0 Chronic obstructive pulmonary disease with (acute) lower respiratory infection (principal); J18.9 Pneumonia, unspecified organism; G25.9 Extrapyramidal and movement disorder, unspecified; J44.1 Chronic obstructive pulmonary disease with (acute) exacerbation; F17.210 Nicotine dependence, cigarettes, uncomplicated; F17.200 Nicotine dependence, unspecified, uncomplicated; F31.9 Bipolar disorder, unspecified
CPT/HCPCS: 85241; 85244; 90004; 90065; 90074; 90100; 90616; 91320; 91400; 91576; 92031; 92715; 92720; 93004; 95059

== ENCOUNTER 2017-01-04 03:43 | Emergency (ER) | payer OTHER, MEDICARE ==
[~2017-01-04 03:43] MED LIST: ALBUTEROL HFA60 DOSE IN; ALPRAZOLAM0.5 MG PO; CITALOPRAM HYDR20 MG PO; DEPAKOTE ER500 MG PO; DOXEPIN HCL150 MG PO; FLOMAX0.4 MG PO; IPRATROPIUM BROMIDE/ IN; LEVOFLOXACIN750 MG PO; LISINOPRIL10 MG PO; MINIPRESS2 MG PO; NICODERM C21 MG/24 H TOP; PREDNISONE10 MG PO; SEROQUEL100 MG PO; SEROQUEL25 MG PO; TRAMADOL HCL50 MG PO; ZOCOR20 MG PO
--- NOTE | 2017-01-04 04:15 | ED CLINICAL REPORT ---
Clinical Report - Physicians/Mid Levels [facility] [address] [place] [address] 01/04/2017 3:45 [id number] Time Seen: 04:05 Jan 04 2017. Arrived- By private vehicle. Historian- patient. CPT: ER phys charges level 3 (#[id number]). HISTORY OF PRESENT ILLNESS Chief Complaint: Injury to the right and left hand. The injury happened 5 days ago. Occurred at home. ( Punctured on something while working.). Patient is experiencing moderate pain. No other injury. ( Worried about infection as are getting more painful.). REVIEW OF SYSTEMS No swelling, tingling, numbness, weakness or foreign body. No skin laceration. All systems otherwise negative, except as recorded above. PAST HISTORY Tetanus immunization status is unknown. Medications: Cholesterol med ??. Depakote Oral. Doxepin HCl Oral 300mg, at bedtime. HTN med ??. Lisinopril Oral. SEROquel Oral. Xanax Oral 0.5 mg, as needed. Allergies: BuSpar. SOCIAL HISTORY Heavy tobacco smoker (cigarette)- less than 1 pack per day. Alcohol use. Patient is a longstanding alcoholic. No drug use. ADDITIONAL NOTES The nursing notes have been reviewed. PHYSICAL EXAM Vital Signs: 01/04/2017 03:55 BP: 111/55. HR: 90. RR: 16. O2 saturation: 97%. Temp: 98.3 F. Pain level now: 8/10. Appearance: Alert. Appears to be in pain. Patient in mild distress. Eyes: Eyes normal inspection. ENT: Pharynx normal. Neck: Normal inspection. CVS: Normal heart rate and rhythm. Respiratory: No respiratory distress. Abdomen: Nontender. Skin: Skin warm. Extremities: Right palm: mild erythema and swelling, moderate tenderness and single puncture wound of the central aspect of the palm. Neurovascular intact distally. No limitation in movement. Left palm: mild erythema and swelling, moderate tenderness and single puncture wound of the central aspect of the palm. Neurovascular intact distally. No abrasion or deformity. No limitation in movement. No wrist injury. Extremities otherwise negative. Neuro, Vascular and Tendons: Vascular status intact. Sensation intact. Motor intact. Neuro: Oriented X 3. No motor deficit. No sensory deficit. PROGRESS AND PROCEDURES Course of Care: Td Bactrim 2 po Patient is stable. Patient/family counseled. Disposition: Discharged. Condition: stable. CLINICAL IMPRESSION Puncture wounds to both hands. INSTRUCTIONS Protect wound and keep wound area clean. Change dressing twice daily. Keep wounds dry. You may wash wounds briefly, then dry. Apply neosporin twice daily. Warnings: TETANUS: You were given a tetanus shot during your visit. Make a note for future reference. Your Current Medications: CONTINUE TAKING THE FOLLOWING MEDICATIONS: Cholesterol med ??*. Depakote Oral. Doxepin HCl Oral : 300mg at bedtime. HTN med ??*. Lisinopril Oral. SEROquel Oral. Xanax Oral : 0.5 mg, prn. Prescription Medications: Hydrocodone/APAP 5mg / 325mg: take 1-2 orally every 6 hours as needed for pain. Dispense ten (10). No refill. Septra DS 800 mg / 160 mg: take 1 tablet orally every 12 hours for 7 days. Dispense fourteen (14). No refills. Substitution is permissible. Follow-up: Follow up with your doctor in five days if not better. Understanding of the discharge instructions verbalized by patient. (Electronically signed by Huey Whitney MD 01/07/2017 20:42) Addenda for NORMA ASHLEY VisitID: [id number] Date: 01/04/2017 01/04/2017 4:47 TDAP IM Response: no adverse reaction.I personally performed the procedure as documented. (Electronically signed by Álvaro Figueroa R.N. - 01/04/2017 4:47) 01/04/2017 4:48 Bactrim DS PO Response: no adverse reaction.I personally performed the procedure as documented. (Electronically signed by Álvaro Figueroa R.N. - 01/04/2017 4:48)
--- NOTE | 2017-01-04 04:15 | ED NURSING NOTES ---
Clinical Report - Nurses [facility] [address] [place] [address] 01/04/2017 3:45 Patient: CHASE ASHLEY TRIAGE Triage time 03:56. Acuity: LEVEL 5. Chief Complaint: RIGHT UPPER EXTREMITY PAIN. Location of symptoms- right hand. LEFT UPPER EXTREMITY PAIN. Location of symptoms- left hand. Alert. No acute distress. SEPSIS SCREEN: Sepsis Screen: negative. Negative (no infection suspected/documented). --04:00 Álvaro Figueroa R.N. 03:55 01/04/17. BP: 111/55 (regular adult cuff) taken on the left arm, via an automated monitor, while sitting. HR: 90 (normal rate). RR: 16 (regular, unlabored and normal). O2 saturation: 97% on room air. Temp: 98.3 F (oral). Pain level now: 04/30. --04:00 Álvaro Figueroa R.N. Weight: 103.5 kg stated. Height/Length: 65 inches Per Patient. BMI: 38. --03:58 Álvaro Figueroa R.N. Medications Cholesterol med ??. Depakote Oral. Doxepin HCl Oral 300mg, at bedtime. HTN med ??. Lisinopril Oral. SEROquel Oral. Xanax Oral 0.5 mg, as needed. --03:58 Álvaro Figueroa R.N. Medication/allergy information source: the patient. --04:00 Álvaro Figueroa R.N. Allergies BuSpar. --03:58 Álvaro Figueroa R.N. History Arrived by private vehicle. Historian: patient. Unaccompanied. ( Chase states he has been working on his brother's [employer] in [facility] and cut his hands on nails. He says now his hands are infected and painful. He reports the pain woke him tonight. There is 1 cut on his R palm and 1 cut on his L palm. He says he can hardly make a fist with the L hand when he woke this morning. TDaP not up to date.). Reports experiencing moderate sweating episodes (Yesterday). No fever or skin rash. 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 Symptoms did not improve after treatment. (yesterday). PAST MEDICAL HX: Tetanus immunization status is not up-to-date. SOCIAL HX: Current every day heavy tobacco smoker (cigarette)- 1 pack per day. Alcohol use. Patient is a longstanding alcoholic. No drug use. He has not traveled outside the [place] The patient was not exposed to MRSA. No infectious disease exposure. ABUSE ASSESSMENT: Abuse assessment: The patient was asked "Do you feel safe in your home?" and "Has anyone hurt you or threatened to hurt you?". No report of abuse. SELF HARM ASSESSMENT: A self harm assessment was performed. The patient answered "no" to the question "Do you have thoughts of harming or killing yourself?" and "Have you recently had thoughts about harming or killing others?". FALL RISK ASSESSMENT: Fall risk assessment completed. No fall risk identified. NUTRITIONAL RISK ASSESSMENT: The nutritional risk assessment revealed no deficiencies. FUNCTIONAL ASSESSMENT: Functional assessment: no impairments noted. LEARNING NEEDS ASSESSMENT: The learning needs assessment revealed no barriers. SKIN INTEGRITY ASSESSMENT: Skin integrity risk assessment completed. No skin integrity risk identified. --04:00 Álvaro Figueroa R.N. PROBLEMS: Bipolar Disorder. Hyperlipidemia. Pneumonia. COPD. Abrasion(s). Sprain. Depression. Hypertension. Back Pain. Puncture Wound. Tetanus Status. Immunizations. Anxiety Reaction. --03:58 Álvaro Figueroa R.N. ADDITIONAL SURGERIES: Left wrist: 40 years ago. --03:58 Álvaro Figueroa R.N. Assessment GENERAL / NEURO / PSYCH: Alert. Oriented X 4. Appears in no acute distress. [place] Coma Scale: 15- eyes open spontaneously (4); best verbal response- oriented x 4 (5); best motor response- obeys commands (6). Patient appears calm and cooperative. RESPIRATORY: Respirations not labored. SKIN: Skin is warm and dry. --04:00 Álvaro Figueroa R.N. Interventions ID and allergy band on patient. To treatment room. --04:00 Álvaro Figueroa R.N. PHYSICAL ASSESSMENT Ambulatory to room. GENERAL / NEURO / PSYCH: Oriented X 4. Alert. Appears in no acute distress. RESPIRATORY: No respiratory distress. Respirations not labored. EXTREMITIES: Extremities exhibit normal ROM. Neuro-vascular status intact to the extremity. No upper extremity edema. Skin is non-tender on the extremities. Right hand: superficial 1.0 cm laceration with controlled bleeding. No deformity. Left hand: superficial 1.0 cm laceration with controlled bleeding. No deformity. ( States "I hope that the doctor can prescribe me some Vicodins, I am on 5s but I have been out and supposed to get them in about 3 days. I have been taking pain meds for years. I can't take tramadols, they do not do anything for me."). SKIN: Skin intact. Skin is warm and dry. --04:02 Álvaro Figueroa R.N. NURSING PROGRESS NOTES The initial plan of care for this patient has been created This plan of care was discussed with the patient. Reassurance given to the patient. Two patient identifiers checked. Call light placed in reach. Side rails up x 1. Bed placed in lowest position. Brakes of bed on. Patient ready for evaluation- ED physician notified. --04:00 Álvaro Figueroa R.N. 04:26 01/04/2017 TDAP IM 0.5 mL given. 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 Given in the left deltoid. Allergies verified and confirmed 5 rights. Vaccine information statement provided to the patient. --04:26 Álvaro Figueroa R.N. 04:26 01/04/2017 Bactrim DS (Sulfamethoxazole-TMP DS) PO Tablets 2 tab given. Allergies verified and confirmed 5 rights. --04:27 Álvaro Figueroa R.N. DISPOSITION / DISCHARGE Departure time: 04:46. Condition at departure: stable. The goals identified in the patient's plan of care were met. No learning barriers present. Discharge instructions provided and reviewed with the patient. Reviewed medication(s) side effects, precautions, dosing and course information. Prescription(s) given to the patient (hCase verbalizes importance of not driving and/or operating any heavy machinery while taking narcotics; he verbalizes safe, proper use of prescribed narcotics for optimal pain management at home. He verbalizes importance of finishing all prescribed antibiotics.). Patient verbalized understanding. Written instructions provided in Maori. ( Chase verbalizes understanding of all d/c instructions including need to f/u with PCP. He has no questions and voices no concerns at this time.). The patient was discharged by the physician. He was discharged home and unaccompanied at time of discharge. He left the Emergency Department ambulatory and via private vehicle. Patient driving. [place] COMA SCORE: [place] Coma Scale: 15- eyes open spontaneously (4); best verbal response- oriented x 4 (5); best motor response- obeys commands (6). --04:46 Álvaro Figueroa R.N. 04:44 01/04/17. BP: deferred. HR: deferred. RR: deferred. O2 saturation: deferred. Temp: deferred. Pain level now deferred. --04:46 Álvaro Figueroa R.N. Locked/Released at 01/04/2017 4:47 by Álvaro Figueroa R.N.
--- NOTE | 2017-01-04 04:15 | ED ORDER SUMMARY ---
..... Patient: NORMA ASHLEY OrderSheet [facility] VisitID: [id number] [place] [address] 61y, M Registration Date/Time: 01/04/2017 ORDER SHEET Weight: 103.5 kg (stated) Allergies: BuSpar GENERAL ORDERS: MEDICATION ORDERS: Tdap IM 0.5 mL (NOW) (04:11 01/04/2017 Dominik VIRGEN) (Ack 4:22 Josep R.N.) (4:26 Josep R.N.) Bactrim DS PO (Tablet 800-160 mg) 2 tabs (NOW) (04:12 01/04/2017 Dominik VIRGEN) (Ack 4:22 Josep R.N.) (4:26 Josep R.N.) IV FLUIDS: ORDER SHEET NOTES: [Electronically signed by Álvaro Figueroa R.N. (04:47 01/04/2017)] [Electronically signed by Huey Whitney MD (20:42 01/07/2017)] [Electronically locked/signed by Álvaro Figueroa R.N. (04:47 01/04/2017)]
--- NOTE | 2017-01-04 04:15 | ED CLINICAL REPORT ---
Clinical Report - Physicians/Mid Levels [facility] [address] [place] [address] 01/04/2017 3:45 [id number] Time Seen: 04:05 Jan 04 2017. Arrived- By private vehicle. Historian- patient. CPT: ER phys charges level 3 (#[id number]). HISTORY OF PRESENT ILLNESS Chief Complaint: Injury to the right and left hand. The injury happened 5 days ago. Occurred at home. ( Punctured on something while working.). Patient is experiencing moderate pain. No other injury. ( Worried about infection as are getting more painful.). REVIEW OF SYSTEMS No swelling, tingling, numbness, weakness or foreign body. No skin laceration. All systems otherwise negative, except as recorded above. PAST HISTORY Tetanus immunization status is unknown. Medications: Cholesterol med ??. Depakote Oral. Doxepin HCl Oral 300mg, at bedtime. HTN med ??. Lisinopril Oral. SEROquel Oral. Xanax Oral 0.5 mg, as needed. Allergies: BuSpar. SOCIAL HISTORY Heavy tobacco smoker (cigarette)- less than 1 pack per day. Alcohol use. Patient is a longstanding alcoholic. No drug use. ADDITIONAL NOTES The nursing notes have been reviewed. PHYSICAL EXAM Vital Signs: 01/04/2017 03:55 BP: 111/55. HR: 90. RR: 16. O2 saturation: 97%. Temp: 98.3 F. Pain level now: 8/10. Appearance: Alert. Appears to be in pain. Patient in mild distress. Eyes: Eyes normal inspection. ENT: Pharynx normal. Neck: Normal inspection. CVS: Normal heart rate and rhythm. Respiratory: No respiratory distress. Abdomen: Nontender. Skin: Skin warm. Extremities: Right palm: mild erythema and swelling, moderate tenderness and single puncture wound of the central aspect of the palm. Neurovascular intact distally. No limitation in movement. Left palm: mild erythema and swelling, moderate tenderness and single puncture wound of the central aspect of the palm. Neurovascular intact distally. No abrasion or deformity. No limitation in movement. No wrist injury. Extremities otherwise negative. Neuro, Vascular and Tendons: Vascular status intact. Sensation intact. Motor intact. Neuro: Oriented X 3. No motor deficit. No sensory deficit. PROGRESS AND PROCEDURES Course of Care: Td Bactrim 2 po Patient is stable. Patient/family counseled. Disposition: Discharged. Condition: stable. CLINICAL IMPRESSION Puncture wounds to both hands. INSTRUCTIONS Protect wound and keep wound area clean. Change dressing twice daily. Keep wounds dry. You may wash wounds briefly, then dry. Apply neosporin twice daily. Warnings: TETANUS: You were given a tetanus shot during your visit. Make a note for future reference. Your Current Medications: CONTINUE TAKING THE FOLLOWING MEDICATIONS: Cholesterol med ??*. Depakote Oral. Doxepin HCl Oral : 300mg at bedtime. HTN med ??*. Lisinopril Oral. SEROquel Oral. Xanax Oral : 0.5 mg, prn. Prescription Medications: Hydrocodone/APAP 5mg / 325mg: take 1-2 orally every 6 hours as needed for pain. Dispense ten (10). No refill. Septra DS 800 mg / 160 mg: take 1 tablet orally every 12 hours for 7 days. Dispense fourteen (14). No refills. Substitution is permissible. Follow-up: Follow up with your doctor in five days if not better. Understanding of the discharge instructions verbalized by patient. (Electronically signed by Huey Whitney MD 01/07/2017 20:42) Addenda for NORMA ASHLEY VisitID: [id number] Date: 01/04/2017 01/04/2017 4:47 TDAP IM Response: no adverse reaction.I personally performed the procedure as documented. (Electronically signed by Álvaro Figueroa R.N. - 01/04/2017 4:47) 01/04/2017 4:48 Bactrim DS PO Response: no adverse reaction.I personally performed the procedure as documented. (Electronically signed by Álvaro Figueroa R.N. - 01/04/2017 4:48)
--- NOTE | 2017-01-04 04:15 | ED ORDER SUMMARY ---
..... Patient: NORMA ASHLEY OrderSheet [facility] VisitID: [id number] [place] [address] 61y, M Registration Date/Time: 01/04/2017 ORDER SHEET Weight: 103.5 kg (stated) Allergies: BuSpar GENERAL ORDERS: MEDICATION ORDERS: Tdap IM 0.5 mL (NOW) (04:11 01/04/2017 Dominik VIRGEN) (Ack 4:22 Josep R.N.) (4:26 Josep R.N.) Bactrim DS PO (Tablet 800-160 mg) 2 tabs (NOW) (04:12 01/04/2017 Dominik IVRGEN) (Ack 4:22 Josep R.N.) (4:26 Josep R.N.) IV FLUIDS: ORDER SHEET NOTES: [Electronically signed by Álvaro Figueroa R.N. (04:47 01/04/2017)] [Electronically signed by Huey Whitney MD (20:42 01/07/2017)] [Electronically locked/signed by Álvaro Figueroa R.N. (04:47 01/04/2017)]
--- NOTE | 2017-01-04 04:15 | ED NURSING NOTES ---
Clinical Report - Nurses [facility] [address] [place] [address] 01/04/2017 3:45 Patient: CHASE ASHLEY TRIAGE Triage time 03:56. Acuity: LEVEL 5. Chief Complaint: RIGHT UPPER EXTREMITY PAIN. Location of symptoms- right hand. LEFT UPPER EXTREMITY PAIN. Location of symptoms- left hand. Alert. No acute distress. SEPSIS SCREEN: Sepsis Screen: negative. Negative (no infection suspected/documented). --04:00 Álvaro Figueroa R.N. 03:55 01/04/17. BP: 111/55 (regular adult cuff) taken on the left arm, via an automated monitor, while sitting. HR: 90 (normal rate). RR: 16 (regular, unlabored and normal). O2 saturation: 97% on room air. Temp: 98.3 F (oral). Pain level now: 04/30. --04:00 Álvaro Figueroa R.N. Weight: 103.5 kg stated. Height/Length: 65 inches Per Patient. BMI: 38. --03:58 Álvaro Figueroa R.N. Medications Cholesterol med ??. Depakote Oral. Doxepin HCl Oral 300mg, at bedtime. HTN med ??. Lisinopril Oral. SEROquel Oral. Xanax Oral 0.5 mg, as needed. --03:58 Álvaro Figueroa R.N. Medication/allergy information source: the patient. --04:00 Álvaro Figueora R.N. Allergies BuSpar. --03:58 Álvaro Figueroa R.N. History Arrived by private vehicle. Historian: patient. Unaccompanied. ( Chase states he has been working on his brother's [employer] in [facility] and cut his hands on nails. He says now his hands are infected and painful. He reports the pain woke him tonight. There is 1 cut on his R palm and 1 cut on his L palm. He says he can hardly make a fist with the L hand when he woke this morning. TDaP not up to date.). Reports experiencing moderate sweating episodes (Yesterday). No fever or skin rash. 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 Symptoms did not improve after treatment. (yesterday). PAST MEDICAL HX: Tetanus immunization status is not up-to-date. SOCIAL HX: Current every day heavy tobacco smoker (cigarette)- 1 pack per day. Alcohol use. Patient is a longstanding alcoholic. No drug use. He has not traveled outside the [place] The patient was not exposed to MRSA. No infectious disease exposure. ABUSE ASSESSMENT: Abuse assessment: The patient was asked "Do you feel safe in your home?" and "Has anyone hurt you or threatened to hurt you?". No report of abuse. SELF HARM ASSESSMENT: A self harm assessment was performed. The patient answered "no" to the question "Do you have thoughts of harming or killing yourself?" and "Have you recently had thoughts about harming or killing others?". FALL RISK ASSESSMENT: Fall risk assessment completed. No fall risk identified. NUTRITIONAL RISK ASSESSMENT: The nutritional risk assessment revealed no deficiencies. FUNCTIONAL ASSESSMENT: Functional assessment: no impairments noted. LEARNING NEEDS ASSESSMENT: The learning needs assessment revealed no barriers. SKIN INTEGRITY ASSESSMENT: Skin integrity risk assessment completed. No skin integrity risk identified. --04:00 Álvaro Figueroa R.N. PROBLEMS: Bipolar Disorder. Hyperlipidemia. Pneumonia. COPD. Abrasion(s). Sprain. Depression. Hypertension. Back Pain. Puncture Wound. Tetanus Status. Immunizations. Anxiety Reaction. --03:58 Álvaro Figueroa R.N. ADDITIONAL SURGERIES: Left wrist: 40 years ago. --03:58 Álvaro Figueroa R.N. Assessment GENERAL / NEURO / PSYCH: Alert. Oriented X 4. Appears in no acute distress. [place] Coma Scale: 15- eyes open spontaneously (4); best verbal response- oriented x 4 (5); best motor response- obeys commands (6). Patient appears calm and cooperative. RESPIRATORY: Respirations not labored. SKIN: Skin is warm and dry. --04:00 Álvaro Figueroa R.N. Interventions ID and allergy band on patient. To treatment room. --04:00 Álvaro Figueroa R.N. PHYSICAL ASSESSMENT Ambulatory to room. GENERAL / NEURO / PSYCH: Oriented X 4. Alert. Appears in no acute distress. RESPIRATORY: No respiratory distress. Respirations not labored. EXTREMITIES: Extremities exhibit normal ROM. Neuro-vascular status intact to the extremity. No upper extremity edema. Skin is non-tender on the extremities. Right hand: superficial 1.0 cm laceration with controlled bleeding. No deformity. Left hand: superficial 1.0 cm laceration with controlled bleeding. No deformity. ( States "I hope that the doctor can prescribe me some Vicodins, I am on 5s but I have been out and supposed to get them in about 3 days. I have been taking pain meds for years. I can't take tramadols, they do not do anything for me."). SKIN: Skin intact. Skin is warm and dry. --04:02 Álvaro Figueroa R.N. NURSING PROGRESS NOTES The initial plan of care for this patient has been created This plan of care was discussed with the patient. Reassurance given to the patient. Two patient identifiers checked. Call light placed in reach. Side rails up x 1. Bed placed in lowest position. Brakes of bed on. Patient ready for evaluation- ED physician notified. --04:00 Álvaro Figueroa R.N. 04:26 01/04/2017 TDAP IM 0.5 mL given. (Lot#: [id number], expiration date: 06/28/2018, Wine Steward/Stewardess: sanofi pasteur). Given in the left deltoid. Allergies verified and confirmed 5 rights. Vaccine information statement provided to the patient. --04:26 Álvaro Figueroa R.N. 04:26 01/04/2017 Bactrim DS (Sulfamethoxazole-TMP DS) PO Tablets 2 tab given. Allergies verified and confirmed 5 rights. --04:27 Álvaro Figueroa R.N. DISPOSITION / DISCHARGE Departure time: 04:46. Condition at departure: stable. The goals identified in the patient's plan of care were met. No learning barriers present. Discharge instructions provided and reviewed with the patient. Reviewed medication(s) side effects, precautions, dosing and course information. Prescription(s) given to the patient (Chase verbalizes importance of not driving and/or operating any heavy machinery while taking narcotics; he verbalizes safe, proper use of prescribed narcotics for optimal pain management at home. He verbalizes importance of finishing all prescribed antibiotics.). Patient verbalized understanding. Written instructions provided in Kazakh. ( Chase verbalizes understanding of all d/c instructions including need to f/u with PCP. He has no questions and voices no concerns at this time.). The patient was discharged by the physician. He was discharged home and unaccompanied at time of discharge. He left the Emergency Department ambulatory and via private vehicle. Patient driving. OLIVE COMA SCORE: Olive Coma Scale: 15- eyes open spontaneously (4); best verbal response- oriented x 4 (5); best motor response- obeys commands (6). --04:46 Álvaro Figueroa R.N. 04:44 01/04/17. BP: deferred. HR: deferred. RR: deferred. O2 saturation: deferred. Temp: deferred. Pain level now deferred. --04:46 Álvaro Figueroa R.N. Locked/Released at 01/04/2017 4:47 by Álvaro Figueroa R.N.
--- NOTE | 2017-01-07 20:43 | ED DISCHARGE INSTRUCTIONS ---
Patient: NORMA ASHLEY General Instructions [facility] VisitID: [id number] [place] [address] 61y, M Registration Date/Time: 01/04/2017 Puncture wounds to both hands. INSTRUCTIONS Protect wound and keep wound area clean. Change dressing twice daily. Keep wounds dry. You may wash wounds briefly, then dry. Apply neosporin twice daily. Warnings: TETANUS: You were given a tetanus shot during your visit. Make a note for future reference. Your Current Medications: CONTINUE TAKING THE FOLLOWING MEDICATIONS: Cholesterol med ??*. Depakote Oral. Doxepin HCl Oral : 300mg at bedtime. HTN med ??*. Lisinopril Oral. SEROquel Oral. Xanax Oral : 0.5 mg, prn. Prescription Medications: Hydrocodone/APAP 5mg / 325mg: take 1-2 orally every 6 hours as needed for pain. Dispense ten (10). No refill. Septra DS 800 mg / 160 mg: take 1 tablet orally every 12 hours for 7 days. Dispense fourteen (14). No refills. Substitution is permissible. Follow-up: Follow up with your doctor in five days if not better. Understanding of the discharge instructions verbalized by patient. ADDITIONAL INFORMATION Hydrocodone Bitartrate, Acetaminophen Oral tablet What is this medicine? ACETAMINOPHEN; HYDROCODONE (a set a SOCORRO zelda fen; janeth droe KOE done) is a pain reliever. It is used to treat mild to moderate pain. How should I use this medicine? Take this medicine by mouth. Swallow it with a full glass of water. Follow the directions on the prescription label. If the medicine upsets your stomach, take the medicine with food or milk. Do not take more than you are told to take. Talk to your cns regarding the use of this medicine in children. This medicine is not approved for use in children. What side effects may I notice from receiving this medicine? Side effects that you should report to your doctor or health home care manager rn as soon as possible: allergic reactions like skin rash, itching or hives, swelling of the face, lips, or tongue breathing problems confusion feeling faint or lightheaded, falls stomach pain yellowing of the eyes or skin Side effects that usually do not require medical attention (report to your doctor or health home care manager rn if they continue or are bothersome): nausea, vomiting stomach upset What may interact with this medicine? alcohol antihistamines isoniazid medicines for depression, anxiety, or psychotic disturbances medicines for sleep muscle relaxants naltrexone narcotic medicines (opiates) for pain phenobarbital ritonavir tramadol What if I miss a dose? If you miss a dose, take it as soon as you can. If it is almost time for your next dose, take only that dose. Do not take double or extra doses. Where should I keep my medicine? Keep out of the reach of children. This medicine can be abused. Keep your medicine in a safe place to protect it from theft. Do not share this medicine with anyone. Selling or giving away this medicine is dangerous and against the law. Store at room temperature between 15 and 30 degrees C (59 and 86 degrees F). Protect from light. Keep container tightly closed. Throw away any unused medicine after the expiration date. Discard unused medicine and used packaging carefully. Pets and children can be harmed if they find used or lost packages. What should I tell my health care provider before I take this medicine? They need to know if you have any of these conditions: brain tumor Crohn's disease, inflammatory bowel disease, or ulcerative colitis drink more than 3 alcohol-containing drinks per day drug abuse or addiction head injury heart or circulation problems kidney disease or problems going to the bathroom liver disease lung disease, asthma, or breathing problems an unusual or allergic reaction to acetaminophen, hydrocodone, other opioid analgesics, other medicines, foods, dyes, or preservatives or trying to get breast-feeding What should I watch for while using this medicine? Tell your doctor or health home care manager rn if your pain does not go away, if it gets worse, or if you have new or a different type of pain. You may develop tolerance to the medicine. Tolerance means that you will need a higher dose of the medicine for pain relief. Tolerance is normal and is expected if you take the medicine for a long time. Do not suddenly stop taking your medicine because you may develop a severe reaction. Your body becomes used to the medicine. This does NOT mean you are addicted. Addiction is a behavior related to getting and using a drug for a non-medical reason. If you have pain, you have a medical reason to take pain medicine. Your doctor will tell you how much medicine to take. If your doctor wants you to stop the medicine, the dose will be slowly lowered over time to avoid any side effects. You may get drowsy or dizzy when you first start taking the medicine or change doses. Do not drive, use machinery, or do anything that may be dangerous until you know how the medicine affects you. Stand or sit up slowly. There are different types of narcotic medicines (opiates) for pain. If you take more than one type at the same time, you may have more side effects. Give your health care provider a list of all medicines you use. Your doctor will tell you how much medicine to take. Do not take more medicine than directed. Call emergency for help if you have problems breathing. The medicine will cause constipation. Try to have a bowel movement at least every 2 to 3 days. If you do not have a bowel movement for 3 days, call your doctor or health home care manager rn. Too much acetaminophen can be very dangerous. Do not take Tylenol (acetaminophen) or medicines that contain acetaminophen with this medicine. Many non-prescription medicines contain acetaminophen. Always read the labels carefully. You have been given the following additional information: Hydrocodone Bitartrate, Acetaminophen Oral tablet (Electronically signed by Huey Whitney MD 01/07/2017 20:42)
--- NOTE | 2017-01-07 20:43 | ED MAR SUMMARY ---
..... Medication Administration Record [facility] [address] [place] [address] Patient: NORMA ASHLEY Visit ID: [id number] 61y, M Weight: 103.5 kg Height/Length: 65 in BMI: 38 ALLERGIES: BuSpar Given 04:01/04/2017 Álvaro Figueroa, RRosaN. Medication Administered: TDAP [IM], Dose: 0.5 mL IM. Medication Ordered: Tdap IM 0.5 mL (NOW). Given 04:01/04/2017 Álvaro Figueroa, R.N. Medication Administered: BACTRIM DS [PO] (SULFAMETHOXAZOLE-TMP DS), Dose: 2 tab Tablets PO. Medication Ordered: Bactrim DS PO (Tablet 800-160 mg) 2 tabs (NOW).
--- NOTE | 2017-01-07 20:43 | ED MAR SUMMARY ---
..... Medication Administration Record [facility] [address] [place] [address] Patient: NORMA ASHLEY Visit ID: [id number] 61y, M Weight: 103.5 kg Height/Length: 65 in BMI: 38 ALLERGIES: BuSpar Given 04:01/04/2017 Álvaro Figueroa, RRosaN. Medication Administered: TDAP [IM], Dose: 0.5 mL IM. Medication Ordered: Tdap IM 0.5 mL (NOW). Given 04:01/04/2017 Álvaro Figueroa, R.N. Medication Administered: BACTRIM DS [PO] (SULFAMETHOXAZOLE-TMP DS), Dose: 2 tab Tablets PO. Medication Ordered: Bactrim DS PO (Tablet 800-160 mg) 2 tabs (NOW).
--- NOTE | 2017-01-07 20:43 | ED MED RECONCILIATION SUMMARY ---
Patient: NORMA ASHLEY Medication Reconciliation Report [facility] VisitID: [id number] [address] [place] [address] 61y, M Registration Date/Time: 01/04/2017 Weight: 103.5 kg Height/Length: 65 in. BMI: 38.0 ALLERGIES: BuSpar The patient's Home Medications are listed below: CONTINUE TAKING THE FOLLOWING MEDICATIONS: Cholesterol med ?? Depakote Oral Doxepin HCl Oral 300mg, at bedtime HTN med ?? Lisinopril Oral SEROquel Oral Xanax Oral 0.5 mg The source(s) of the original Home Medication information: patient The following Medications were given to the patient in the Emergency Department: TDAP [IM] IM 0.5 mL, administered: 01/04/2017 4:26:00 AM Bactrim DS [PO] PO 2 tab, administered: 01/04/2017 4:26:00 AM The following Medications were prescribed to the patient: Hydrocodone/APAP 5mg / 325mg: take 1-2 orally every 6 hours as needed for pain. Dispense ten (10). No refill. -- Huey Whitney MD Septra DS 800 mg / 160 mg: take 1 tablet orally every 12 hours for 7 days. Dispense fourteen (14). No refills. Substitution is permissible. -- Huey Whitney MD
--- NOTE | 2017-01-07 20:43 | ED MED RECONCILIATION SUMMARY ---
Patient: NORMA ASHLEY Medication Reconciliation Report [facility] VisitID: [id number] [address] [place] [address] 61y, M Registration Date/Time: 01/04/2017 Weight: 103.5 kg Height/Length: 65 in. BMI: 38.0 ALLERGIES: BuSpar The patient's Home Medications are listed below: CONTINUE TAKING THE FOLLOWING MEDICATIONS: Cholesterol med ?? Depakote Oral Doxepin HCl Oral 300mg, at bedtime HTN med ?? Lisinopril Oral SEROquel Oral Xanax Oral 0.5 mg The source(s) of the original Home Medication information: patient The following Medications were given to the patient in the Emergency Department: TDAP [IM] IM 0.5 mL, administered: 01/04/2017 4:26:00 AM Bactrim DS [PO] PO 2 tab, administered: 01/04/2017 4:26:00 AM The following Medications were prescribed to the patient: Hydrocodone/APAP 5mg / 325mg: take 1-2 orally every 6 hours as needed for pain. Dispense ten (10). No refill. -- Huey Whitney MD Septra DS 800 mg / 160 mg: take 1 tablet orally every 12 hours for 7 days. Dispense fourteen (14). No refills. Substitution is permissible. -- Huey Whitney MD
--- NOTE | 2017-01-07 20:43 | ED DISCHARGE INSTRUCTIONS ---
Patient: NORMA ASHLEY General Instructions [facility] VisitID: [id number] [place] [address] 61y, M Registration Date/Time: 01/04/2017 Puncture wounds to both hands. INSTRUCTIONS Protect wound and keep wound area clean. Change dressing twice daily. Keep wounds dry. You may wash wounds briefly, then dry. Apply neosporin twice daily. Warnings: TETANUS: You were given a tetanus shot during your visit. Make a note for future reference. Your Current Medications: CONTINUE TAKING THE FOLLOWING MEDICATIONS: Cholesterol med ??*. Depakote Oral. Doxepin HCl Oral : 300mg at bedtime. HTN med ??*. Lisinopril Oral. SEROquel Oral. Xanax Oral : 0.5 mg, prn. Prescription Medications: Hydrocodone/APAP 5mg / 325mg: take 1-2 orally every 6 hours as needed for pain. Dispense ten (10). No refill. Septra DS 800 mg / 160 mg: take 1 tablet orally every 12 hours for 7 days. Dispense fourteen (14). No refills. Substitution is permissible. Follow-up: Follow up with your doctor in five days if not better. Understanding of the discharge instructions verbalized by patient. ADDITIONAL INFORMATION Hydrocodone Bitartrate, Acetaminophen Oral tablet What is this medicine? ACETAMINOPHEN; HYDROCODONE (a set a SOCORRO zelda fen; janeth droe KOE done) is a pain reliever. It is used to treat mild to moderate pain. How should I use this medicine? Take this medicine by mouth. Swallow it with a full glass of water. Follow the directions on the prescription label. If the medicine upsets your stomach, take the medicine with food or milk. Do not take more than you are told to take. Talk to your wax ball knock out worker regarding the use of this medicine in children. This medicine is not approved for use in children. What side effects may I notice from receiving this medicine? Side effects that you should report to your doctor or health direct care staffer as soon as possible: allergic reactions like skin rash, itching or hives, swelling of the face, lips, or tongue breathing problems confusion feeling faint or lightheaded, falls stomach pain yellowing of the eyes or skin Side effects that usually do not require medical attention (report to your doctor or health direct care staffer if they continue or are bothersome): nausea, vomiting stomach upset What may interact with this medicine? alcohol antihistamines isoniazid medicines for depression, anxiety, or psychotic disturbances medicines for sleep muscle relaxants naltrexone narcotic medicines (opiates) for pain phenobarbital ritonavir tramadol What if I miss a dose? If you miss a dose, take it as soon as you can. If it is almost time for your next dose, take only that dose. Do not take double or extra doses. Where should I keep my medicine? Keep out of the reach of children. This medicine can be abused. Keep your medicine in a safe place to protect it from theft. Do not share this medicine with anyone. Selling or giving away this medicine is dangerous and against the law. Store at room temperature between 15 and 30 degrees C (59 and 86 degrees F). Protect from light. Keep container tightly closed. Throw away any unused medicine after the expiration date. Discard unused medicine and used packaging carefully. Pets and children can be harmed if they find used or lost packages. What should I tell my health care provider before I take this medicine? They need to know if you have any of these conditions: brain tumor Crohn's disease, inflammatory bowel disease, or ulcerative colitis drink more than 3 alcohol-containing drinks per day drug abuse or addiction head injury heart or circulation problems kidney disease or problems going to the bathroom liver disease lung disease, asthma, or breathing problems an unusual or allergic reaction to acetaminophen, hydrocodone, other opioid analgesics, other medicines, foods, dyes, or preservatives or trying to get breast-feeding What should I watch for while using this medicine? Tell your doctor or health direct care staffer if your pain does not go away, if it gets worse, or if you have new or a different type of pain. You may develop tolerance to the medicine. Tolerance means that you will need a higher dose of the medicine for pain relief. Tolerance is normal and is expected if you take the medicine for a long time. Do not suddenly stop taking your medicine because you may develop a severe reaction. Your body becomes used to the medicine. This does NOT mean you are addicted. Addiction is a behavior related to getting and using a drug for a non-medical reason. If you have pain, you have a medical reason to take pain medicine. Your doctor will tell you how much medicine to take. If your doctor wants you to stop the medicine, the dose will be slowly lowered over time to avoid any side effects. You may get drowsy or dizzy when you first start taking the medicine or change doses. Do not drive, use machinery, or do anything that may be dangerous until you know how the medicine affects you. Stand or sit up slowly. There are different types of narcotic medicines (opiates) for pain. If you take more than one type at the same time, you may have more side effects. Give your health care provider a list of all medicines you use. Your doctor will tell you how much medicine to take. Do not take more medicine than directed. Call emergency for help if you have problems breathing. The medicine will cause constipation. Try to have a bowel movement at least every 2 to 3 days. If you do not have a bowel movement for 3 days, call your doctor or health direct care staffer. Too much acetaminophen can be very dangerous. Do not take Tylenol (acetaminophen) or medicines that contain acetaminophen with this medicine. Many non-prescription medicines contain acetaminophen. Always read the labels carefully. You have been given the following additional information: Hydrocodone Bitartrate, Acetaminophen Oral tablet (Electronically signed by Huey Whitney MD 01/07/2017 20:42)
== END 2017-01-04 04:46 | disposition home or self-care (01) ==
LOC: ED SRH 03:43
DX: S61.431A Puncture wound without foreign body of right hand, initial encounter (principal); S61.432A Puncture wound without foreign body of left hand, initial encounter; X58.XXXA Exposure to other specified factors, initial encounter; Y92.009 Unspecified place in unspecified non-institutional (private) residence as the place of occurrence of the external cause; F17.210 Nicotine dependence, cigarettes, uncomplicated; Z23 Encounter for immunization; Z79.899 Other long term (current) drug therapy; Z88.8 Allergy status to other drugs, medicaments and biological substances